=== PATIENT | female | born 2000 | race Caucasian/White ===

== ENCOUNTER 2023-05-22 09:06 | Emergency (ER) | payer BC, SELFPAY ==
[2023-05-22 09:50] VITALS: BP 121/83; PULSE 74; RESP 18; TEMP 36.9; O2SAT 100; BMI 21.7
--- NOTE | 2023-05-22 10:05 | EXP.UTC ---
Discharge Plan Disposition Patient Disposition: Home, Self-Care Condition: Good Referrals Follow up/Referrals: Doroteo Manjarrez DO [Staff Physician] - See instructions Provider,Referral, [Primary Care Provider] - See instructions Activity Restrictions/Add. Instructions Additional Instructions/Restrictions: Rest the extremity. Take tylenol for pain. Follow up with Dr. Manjarrez (orthopedics). I put in a referral but you need to call his office and schedule an appointment. Follow up with your regular doctor. GO TO THE ER FOR ANY WORSENING SYMPTOMS Clinical Impressions Clinical Impression: Left shoulder pain, Left shoulder strain, Tendinopathy of left shoulder Instructions Patient Instructions: Shoulder Tendinopathy, DI for Shoulder Pain Discharge ED Provider: [place] Caba [facility] General Stated complaint: left shoulder pain Mode of Arrival: Ambulatory Source of Information: Patient Limitations: No Limitations Time Seen by Provider: 05/22/23 09:40 Description of Symptoms (Recalled from Triage Doc. by RN): Pt had should surgery a year ago. She is having shoulder pain for about 2 weeks. She has 3 kids under three. HEENT Symptoms (Recalled from RN notes): No Resp Symptoms (Recalled from RN notes): No Skin Symptoms (Recalled from RN notes): No MS Symptoms (Recalled from RN notes): Yes Functional Status (Recalled from RN notes): n/a History of Present Illness Provider Complaint: She c/o chronic left shoulder pain that recently worsened after she pulled it lifting one of her children. Related Data Allergies Allergy/AdvReac Type Severity Reaction Status Date / Time No Known Allergies Allergy Verified 05/22/23 10:01 Worker's Comp Is this a Worker's Comp case?: No [facility] Disclaimer: The information contained in this section may have been updated after the patient was seen, as this information can be updated by other users. Social History Smoking Status: Never smoker alcohol intake: never current occupational status: employed Travel in the last 8 weeks: None ROS Obtained: Yes All systems reviewed & no additional complaints except as documented Constitutional Constitutional: Denies chills and Denies fever(s) Eyes Eyes: Denies eye discharge ENT Ears, Nose, Mouth, and Throat: Denies dizziness, Denies otalgia and Denies sore throat Cardiovascular Cardiovascular: Denies chest pain Respiratory Respiratory: Denies shortness of breath, Denies chest congestion, Denies cough, Denies stridor and Denies wheezing Gastrointestinal Gastrointestingal: Denies nausea or vomiting Musculoskeletal Musculoskeletal: Reports as per HPI Integumentary/Breasts Skin/Breast: Denies rash Neurologic Neurologic: Denies dizziness and Denies paresthesias Allergic/Immunologic Allergic/Immunologic: Denies wheezing Physical Exam General General appearance: alert and in no apparent distress Head Head exam: atraumatic, normocephalic and normal inspection Eye Eye exam: Present normal appearance, PERRL and EOMI ENT ENT exam: Present normal exam, normal oropharynx, mucous membranes moist, TM's normal bilaterally and normal external ear exam Neck Neck exam: Present normal inspection, full ROM and trachea midline; Absent meningismus or lymphadenopathy Chest Chest inspection: Present normal inspection and symmetric chest wall rise; Absent tenderness Respiratory Respiratory exam: Present normal lung sounds bilaterally; Absent respiratory distress Cardiovascular Cardiovascular exam: Present regular rate and normal rhythm; Absent JVD Abdominal Exam Abdominal exam: Present soft and normal bowel sounds; Absent distention, tenderness or guarding Extremities Exam Extremities exam: Present normal capillary refill; Absent calf tenderness Expanded Upper Extremity Exam Left: Shoulder exam: Present full ROM and tenderness; Absent swelling, abrasion, laceration, ecchymosis, deformity, crepitus, dislocation, erythema or tenderness over AC joint Back Exam Back exam: Present normal inspection; Absent tenderness Neurological Exam Neurological exam: Present alert and oriented X3 Psychiatric Psychiatric exam: Present normal affect and normal mood Skin Skin exam: Present warm, dry, intact and normal color Lymphatic Lymphatic Findings: no adenopathy Medical Decision Making Armen Inquiry Pt receiving controlled substance: No Vital Signs: 05/22/23 09:50 Temperature 98.4 F Temperature Source Oral Pulse Rate [Right Radial] 74 Respiratory Rate 18 Blood Pressure [Right Arm] 121/83 Blood Pressure Mean [Right Arm] 95 Blood Pressure Source [Right Arm] Automatic Cuff Blood Pressure Position [Right Arm] Sitting 02 Sat by Pulse Oximetry 100 Oxygen Delivery Method Room Air
--- NOTE | 2023-05-22 10:06 | XR_ITS ---
FINAL REPORT CLINICAL HISTORY: left sided shoulder pain FINDINGS: Left shoulder Three views were obtained. Sideplate and screws are seen securing healed fracture deformity of the distal clavicle. There are mild hypertrophic changes of the AC joint. The glenohumeral joint is intact. IMPRESSION: Degenerative and postsurgical changes. Reviewed, Interpreted and Dictated by Jagdeep Cheung MD Transcribed by Lisa Soriano Authenticated and [facility]
[2023-05-22 10:13] LABS: UTC Pregnancy Test, Urine Negative (Negative)
[2023-05-22 10:51] VITALS: BP 121/83; PULSE 74; RESP 18; TEMP 36.9; O2SAT 100
== END 2023-05-22 10:51 | disposition home or self-care (01) ==
PROVIDERS: Emergency Provider Nurse Practitioner Family
DX: S46.912A Strain of unspecified muscle, fascia and tendon at shoulder and upper arm level, left arm, initial encounter; M25.512 Pain in left shoulder; M67.912 Unspecified disorder of synovium and tendon, left shoulder; X50.0XXA Overexertion from strenuous movement or load, initial encounter
CPT/HCPCS: 73030; 81025; 99204; 99212; G0463

== ENCOUNTER 2023-09-30 08:42 | Emergency (ER) | payer BC, SELFPAY ==
[2023-09-30 09:00] VITALS: BP 115/63; PULSE 103; RESP 19; TEMP 36.8; O2SAT 98; BMI 21.4
--- NOTE | 2023-09-30 09:15 | EXP.UTC ---
Discharge Plan Disposition Patient Disposition: Home, Self-Care Condition: Good Prescriptions Prescriptions: New amoxicillin 500 mg tablet 500 mg PO TID 10 Days Qty: 30 0RF polymyxin B sulf-trimethoprim 10,000 unit- 1 mg/mL drops 1 drp Eye-Right Q3H 7 Days Qty: 10 0RF Rx Instructions: while awake; do not exceed 6 doses in 24 hours Referrals Follow up/Referrals: Provider,Referral, MD [Primary Care Provider] - See instructions Activity Restrictions/Add. Instructions Additional Instructions/Restrictions: Drink plenty of fluids. Take tylenol or ibuprofen for pain or fever. Take the medications as directed. Follow up with your regular doctor. GO TO THE ER FOR ANY WORSENING SYMPTOMS Clinical Impressions Clinical Impression: Pharyngitis, Acute conjunctivitis, right eye Instructions Patient Instructions: How to Instill Eye Drops Discharge ED Provider: Ky Caba [facility] HPI General Stated complaint: redness and swell to R eye, pain in L ear, S/T Time Seen by Provider: 09/30/23 09:15 History of Present Illness Provider Complaint: She state that for the past 5 days she has had redness of R eye, pain in L ear, and sore throat. Related Data Previous Rx's Medication Instructions Recorded amoxicillin 500 mg tablet 500 mg PO TID 10 days #30 tabs 09/30/23 polymyxin B sulfate 10,000 1 drp Eye-Right Q3H 7 days #10 mL 09/30/23 unit-trimethoprim 1 mg/mL eye drops Allergies Allergy/AdvReac Type Severity Reaction Status Date / Time No Known Allergies Allergy Verified 09/30/23 09:17 [facility] Disclaimer: The information contained in this section may have been updated after the patient was seen, as this information can be updated by other users. Social History Smoking Status: Never smoker alcohol intake: never current occupational status: employed Travel in the last 8 weeks: None ROS Obtained: Yes All systems reviewed & no additional complaints except as documented Constitutional Constitutional: Reports chills and Reports fever(s) Eyes Eyes: Denies eye discharge ENT Ears, Nose, Mouth, and Throat: Reports as per HPI Cardiovascular Cardiovascular: Denies chest pain Respiratory Respiratory: Denies chest congestion and Reports cough Gastrointestinal Gastrointestingal: Reports nausea; Denies abdominal pain, constipation, cramping, diarrhea or vomiting Musculoskeletal Musculoskeletal: Denies arthralgias Integumentary/Breasts Skin/Breast: Denies rash Neurologic Neurologic: Denies paresthesias Physical Exam General General appearance: alert and in no apparent distress Head Head exam: atraumatic, normocephalic and normal inspection Eye Eye exam: Present normal appearance, PERRL and EOMI ENT ENT exam: Present mucous membranes moist and normal external ear exam Expanded ENT Exam TM/Canal exam: Bilateral TM: erythema and bulging Nose exam: Absent sinus tenderness Mouth exam: Present normal external inspection; Absent drooling Teeth exam: Present normal inspection Throat exam: Present tonsillar erythema, tonsillomegaly and tonsillar exudate Neck Neck exam: Present normal inspection, full ROM and trachea midline; Absent tenderness, meningismus or lymphadenopathy Chest Chest inspection: Present normal inspection and symmetric chest wall rise; Absent tenderness Respiratory Respiratory exam: Present normal lung sounds bilaterally; Absent respiratory distress, wheezes, stridor or accessory muscle use Cardiovascular Cardiovascular exam: Present regular rate and normal rhythm; Absent systolic murmur or diastolic murmur Abdominal Exam Abdominal exam: Present soft and normal bowel sounds; Absent distention, tenderness, guarding, rebound or rigidity Extremities Exam Extremities exam: Present normal inspection and normal capillary refill; Absent calf tenderness Back Exam Back exam: Present normal inspection and full ROM; Absent tenderness, CVA tenderness (R) or CVA tenderness (L) Neurological Exam Neurological exam: Present alert, oriented X3 and CN II-XII intact Psychiatric Psychiatric exam: Present normal affect and normal mood Skin Skin exam: Present warm, dry, intact and normal color Medical Decision Making Medical Records Medical records reviewed: No I reviewed the patient's medical records. [place] Inquiry Pt receiving controlled substance: No Lab Data Lab results reviewed: Yes I reviewed the patient's lab results.
[2023-09-30 09:35] LABS: UTC Strep Screen (Rapid) Negative (Negative)
[2023-09-30 10:01] VITALS: BP 115/63; PULSE 103; RESP 19; TEMP 36.8; O2SAT 98
== END 2023-09-30 10:01 | disposition home or self-care (01) ==
PROVIDERS: Emergency Provider Nurse Practitioner Family
DX: J02.9 Acute pharyngitis, unspecified (principal); H10.31 Unspecified acute conjunctivitis, right eye; H92.02 Otalgia, left ear
CPT/HCPCS: 87880; 99212; 99214; G0463

== ENCOUNTER 2023-12-20 09:15 | Emergency (ER) | payer BC, SELFPAY ==
[2023-12-20 09:37] VITALS: BP 113/61; PULSE 98; RESP 20; TEMP 36.6; O2SAT 99; BMI 20.8
--- NOTE | 2023-12-20 09:45 | EXP.UTC ---
Discharge Plan Disposition Patient Disposition: Home, Self-Care Condition: Good Prescriptions Prescriptions: New metronidazole 500 mg tablet 500 mg PO BID 7 Days Qty: 14 0RF Referrals Follow up/Referrals: Provider,Referral, MD [Primary Care Provider] - See instructions Activity Restrictions/Add. Instructions Additional Instructions/Restrictions: *Monitor Temp, Over the counter Motrin or Tylenol as directed/as needed Tylenol every 4 hours and Motrin every 6 hours (as long as your family doctor has told you that you can take it) for fever or pain. and straight to ER if unable to lower temp less than 101.0 after medication given Make sure to drink plenty of fluids *Sleep elevated *Humidifier/Vaporizer Follow up IMMEDIATELY for new or worsening symptoms or no Noticeable improvement over the next 48-72 hours. 911 for difficulty breathing or swallowing You were tested for today for Upper Respiratory Panel with COVID19 your test result should be back in the next 24 hours, you may check your results on the [facility] Portal Clinical Impressions Clinical Impression: Bacterial vaginosis, Viral upper respiratory infection Instructions Patient Instructions: DI for Viral Syndrome, DI for Bacterial Vaginosis, Metronidazole Print Language Print Language: Occitan Discharge ED Provider: Sharon Chamberlain [facility] [place] General Stated complaint: headache, congestion, nauseous Mode of Arrival: Ambulatory Source of Information: Patient Time Seen by Provider: 12/20/23 09:45 Description of Symptoms (Recalled from Triage Doc. by RN): HEADACHE, CONGESTION HEENT Symptoms (Recalled from RN notes): Yes Resp Symptoms (Recalled from RN notes): Yes Skin Symptoms (Recalled from RN notes): No MS Symptoms (Recalled from RN notes): No Functional Status (Recalled from RN notes): WNL History of Present Illness Provider Complaint: Patient states that she is concerned she may have COVID states that she has been having headache, bodyaches and nausea States that she also has a hx of BV and she is having the fishy smelling discharge and itchiness so she wanted to get something for that also Related Data Previous Rx's ?Medication ?Instructions ?Recorded metronidazole 500 mg tablet 500 mg PO BID 7 days #14 tabs 12/20/23 Allergies Allergy/AdvReac Type Severity Reaction Status Date / Time No Known Allergies Allergy Verified 09/30/23 09:17 Worker's Comp Is this a Worker's Comp case?: No PFSH [facility] Disclaimer: The information contained in this section may have been updated after the patient was seen, as this information can be updated by other users. Social History Smoking Status: Never smoker alcohol intake: never current occupational status: employed Travel in the last 8 weeks: None ROS Obtained: Yes All systems reviewed & no additional complaints except as documented and Yes Systems reviewed as appropriate & no additional complaints except as documented Constitutional Constitutional: Reports system reviewed and no additional complaints, except as documented, Reports as per HPI, Reports body ache and Reports headache(s) ENT Ears, Nose, Mouth, and Throat: Reports system reviewed and no additional complaints, except as documented, Reports as per HPI, Reports headache(s) and Reports nasal congestion Cardiovascular Cardiovascular: Reports system reviewed and no additional complaints, except as documented and Reports as per HPI Respiratory Respiratory: Reports system reviewed and no additional complaints, except as documented and Reports as per HPI Gastrointestinal Gastrointestingal: Reports system reviewed and no additional complaints, except as documented and as per HPI Genitourinary Female Genitourinary: Reports system reviewed and no additional complaints, except as documented, Reports as per HPI, Reports vaginal odor and Reports vaginal pruritus Neurologic Neurologic: Reports headache(s) Physical Exam General General appearance: alert and in no apparent distress ENT ENT exam: Present mucous membranes moist Expanded ENT Exam Nose exam: Absent sinus tenderness Throat exam: Present normal inspection Respiratory Respiratory exam: Present normal lung sounds bilaterally; Absent respiratory distress or wheezes Cardiovascular Cardiovascular exam: Present regular rate, normal rhythm and normal heart sounds External exam: Present other (deferred reports fishy smelling discharge and itching like she has when she has BV) Neurological Exam Neurological exam: Present alert, oriented X3 and normal gait Medical Decision Making Medical Records Screening: Per USPSTF and CDC recommendations, given the prevalence of disease in our region, it is our hospital?s policy to screen for HIV and viral Hepatitis for all patients aged 18 and over and those with ongoing risk factors. Armen Inquiry Pt receiving controlled substance: No Armen was queried for this patient: No Vital Signs: 12/20/23 09:37 Temperature 97.9 F Temperature Source Oral Pulse Rate [Left Brachial] 98 H Respiratory Rate 20 Blood Pressure [Right Arm] 113/61 Blood Pressure Mean [Right Arm] 78 02 Sat by Pulse Oximetry 99
[2023-12-20 09:57] VITALS: BP 113/61; PULSE 98; RESP 20; TEMP 36.6; O2SAT 99
== END 2023-12-20 10:04 | disposition home or self-care (01) ==
PROVIDERS: Emergency Provider Nurse Practitioner
DX: N76.0 Acute vaginitis (principal); R51.9 Headache, unspecified; R11.0 Nausea; J06.9 Acute upper respiratory infection, unspecified; B34.9 Viral infection, unspecified
CPT/HCPCS: 87635; 99212; 99214; G0463

== ENCOUNTER 2024-01-22 09:11 | Emergency (ER) | payer BC, SELFPAY ==
[2024-01-22 09:30] VITALS: BP 134/62; PULSE 78; RESP 20; TEMP 36.4; O2SAT 98; BMI 21.0
--- NOTE | 2024-01-22 10:20 | EXP.UTC ---
Discharge Plan Disposition Patient Disposition: Home, Self-Care Condition: Good Prescriptions Prescriptions: New metronidazole 500 mg tablet 500 mg PO BID 7 Days Qty: 14 0RF Referrals Follow up/Referrals: Provider,Referral, [Primary Care Provider] - See instructions Activity Restrictions/Add. Instructions Additional Instructions/Restrictions: Take medication as prescribed Follow up with OBGYN as discussed Make sure to eat with this medication Clinical Impressions Clinical Impression: Bacterial vaginosis Instructions Patient Instructions: Metronidazole, DI for Bacterial Vaginosis Print Language Print Language: Cymraes Discharge ED Provider: Sharon Chamberlain [facility] [place] HPI General Stated complaint: uti Mode of Arrival: Ambulatory Source of Information: Patient Limitations: No Limitations Time Seen by Provider: 01/22/24 10:20 Description of Symptoms (Recalled from Triage Doc. by RN): PATIENT C/O ITCHING AND SMELLY DISCHARGE TO VAGINAL AREA THAT STARTED THIS PAST WEEK HEENT Symptoms (Recalled from RN notes): No Resp Symptoms (Recalled from RN notes): No Skin Symptoms (Recalled from RN notes): No MS Symptoms (Recalled from RN notes): No Functional Status (Recalled from RN notes): WNL History of Present Illness Provider Complaint: Patient states that she has a hx of BV and get it when she changes soaps or wears thongs and she has done both recently and noticed she was having some itching and fishy smelling discharge so she came in to get something to help like she has before Related Data Previous Rx's ?Medication ?Instructions ?Recorded metronidazole 500 mg tablet 500 mg PO BID 7 days #14 tabs 01/22/24 Allergies Allergy/AdvReac Type Severity Reaction Status Date / Time No Known Allergies Allergy Verified 09/30/23 09:17 Worker's Comp Is this a Worker's Comp case?: No [facility] Disclaimer: The information contained in this section may have been updated after the patient was seen, as this information can be updated by other users. Medical History (Updated 01/22/24 @ 10:24 by Sharon Chamberlain APRN) No significant past medical history Social History Smoking Status: Never smoker alcohol intake: never current occupational status: employed Travel in the last 8 weeks: None ROS Obtained: Yes All systems reviewed & no additional complaints except as documented and Yes Systems reviewed as appropriate & no additional complaints except as documented Constitutional Constitutional: Reports system reviewed and no additional complaints, except as documented and Reports as per HPI ENT Ears, Nose, Mouth, and Throat: Reports system reviewed and no additional complaints, except as documented and Reports as per HPI Cardiovascular Cardiovascular: Reports system reviewed and no additional complaints, except as documented and Reports as per HPI Respiratory Respiratory: Reports system reviewed and no additional complaints, except as documented and Reports as per HPI Gastrointestinal Gastrointestingal: Reports system reviewed and no additional complaints, except as documented and as per HPI Genitourinary Female Genitourinary: Reports system reviewed and no additional complaints, except as documented, Reports as per HPI, Reports vaginal discharge (fishy smelling discharge) and Reports vaginal pruritus Physical Exam General General appearance: alert and in no apparent distress ENT ENT exam: Present mucous membranes moist Respiratory Respiratory exam: Present normal lung sounds bilaterally; Absent respiratory distress or wheezes Cardiovascular Cardiovascular exam: Present regular rate, normal rhythm and normal heart sounds External exam: Present other (deferred) Neurological Exam Neurological exam: Present alert, oriented X3 and normal gait Medical Decision Making Medical Records Screening: Per USPSTF and CDC recommendations, given the prevalence of disease in our region, it is our hospital?s policy to screen for HIV and viral Hepatitis for all patients aged 18 and over and those with ongoing risk factors. Armen Inquiry Pt receiving controlled substance: No Armen was queried for this patient: No Vital Signs: 01/22/24 09:30 Temperature 97.6 F Temperature Source Oral Pulse Rate [Left Brachial] 78 Respiratory Rate 20 Blood Pressure [Left Arm] 134/62 Blood Pressure Mean [Left Arm] 86 Blood Pressure Source [Left Arm] Automatic Cuff Blood Pressure Position [Left Arm] Sitting 02 Sat by Pulse Oximetry 98 Oxygen Delivery Method Room Air
[2024-01-22 10:25] VITALS: BP 134/62; PULSE 78; RESP 20; TEMP 36.4; O2SAT 98
== END 2024-01-22 10:28 | disposition home or self-care (01) ==
PROVIDERS: Emergency Provider Nurse Practitioner
DX: N76.0 Acute vaginitis (principal)
CPT/HCPCS: 99213; G0381

== ENCOUNTER 2024-02-27 11:00 | Emergency (ER) | payer BC, SELFPAY ==
[2024-02-27 11:01] VITALS: BP 92/71; PULSE 82; RESP 16; TEMP 36.5; O2SAT 100; BMI 21.0
--- NOTE | 2024-02-27 11:35 | ED_ITS ---
Discharge Plan Disposition Patient Disposition: Home, Self-Care Prescriptions Prescriptions: New amoxicillin 875 mg tablet 875 mg PO BID Qty: 10 0RF prednisone 20 mg tablet 40 mg PO DAILY 5 Days Qty: 10 0RF methocarbamol 750 mg tablet 1,500 mg PO TID 5 Days Qty: 30 0RF No Action metronidazole 500 mg tablet 500 mg PO BID 7 Days Qty: 14 0RF Referrals Follow up/Referrals: Provider,Referral, MD [Primary Care Provider] - See instructions Activity Restrictions/Add. Instructions Additional Instructions/Restrictions: Call your family doctor to establish care for this visit to the emergency department and schedule follow-up within 48 hours to ensure improvement. If you have any worsening of your condition or any other concerning signs or symptoms, return to the emergency department or your primary care doctor for further evaluation. Prednisone 40 mg each morning with plenty of food and water to prevent GI upset. Robaxin up to 3 times daily to help with muscle spasms in your neck. If you begin having fevers, dark green or yellow nasal discharge, or any other concerns, burr picker amoxicillin and take twice daily for 5 days. Clinical Impressions Clinical Impression: Spasm of left trapezius muscle, Sinusitis Print Language Print Language: Panamanian Discharge ED Provider: Antony Spence General Adult HPI General Chief complaint: Upper Respiratory Infection Stated complaint: headache, sinus pressure Time Seen by Provider: 02/27/24 11:21 Mode of Arrival: Ambulatory Source of Information: Patient Limitations: No Limitations Description of Symptoms (Recalled from ER Triage Doc. by RN): Patient reports sinus and ear pressure since last night. States that she has body aches and a headache as well. History of Present Illness HPI narrative: Please note that above description of symptoms, in this electronic medical record under categorization of recalled from ER triage doctor by RN are reflective of an initial nursing assessment, however, is not reflective of my full history and physical exam that was personally taken and clarified. Consequentially, this preceding description of symptoms, which may include the p atient's categorized chief complaint in the EMR, do not reflect my personal clinical impression, and the ultimate description of history of present illness and patient stated complaints should be deferred to this section of the note. Unless stated otherwise or congruent with this section of the note, additional signs, symptoms, or incongruence should be interpreted as inaccurate with my clinical impression. Related Data Previous Rx's ?Medication ?Instructions ?Recorded metronidazole 500 mg tablet 500 mg PO BID 7 days #14 tabs 01/22/24 amoxicillin 875 mg tablet 875 mg PO BID #10 tabs 02/27/24 methocarbamol 750 mg tablet 1,500 mg (2 x 750 mg) PO TID 5 02/27/24 days #30 tabs prednisone 20 mg tablet 40 mg (2 x 20 mg) PO DAILY 5 days 02/27/24 #10 tabs Allergies Allergy/AdvReac Type Severity Reaction Status Date / Time No Known Allergies Allergy Verified 09/30/23 09:17 [facility] Disclaimer: The information contained in this section may have been updated after the patient was seen, as this information can be updated by other users. Medical History (Updated 02/27/24 @ 12:46 by Antony Spence MD) No significant past medical history Social History Smoking Status: Current every day smoker alcohol intake: never current occupational status: employed ROS Obtained: Yes All systems reviewed & no additional complaints except as documented Physical Exam General General appearance: alert Head Head exam: atraumatic and normocephalic Eye Eye exam: Present normal appearance, PERRL and EOMI Neck Neck exam: Present normal inspection, full ROM, trachea midline and tenderness (Paraspinal left-sided trapezius muscle tenderness); Absent meningismus or lymphadenopathy Respiratory Respiratory exam: Absent respiratory distress, wheezes, stridor, accessory muscle use or prolonged expiratory phase Cardiovascular Cardiovascular exam: Present other (Pulses equal symmetric in upper and lower extremities) Abdominal Exam Abdominal exam: Present soft; Absent distention, tenderness or pulsatile mass Extremities Exam Extremities exam: Absent edema Neurological Exam Neurological exam: Present alert, oriented X3 and CN II-XII intact; Absent motor sensory deficit Skin Skin exam: Present warm and dry; Absent diaphoresis or erythema Medical Decision Making Medical Records Medical records reviewed: Yes I reviewed the patient's medical records. Screening: Per USPSTF and CDC recommendations, given the prevalence of disease in our region, it is our hospital?s policy to screen for HIV and viral Hepatitis for all patients aged 18 and over and those with ongoing risk factors. Armen Inquiry Pt receiving controlled substance: No Armen was queried for this patient: No Vital Signs: 02/27/24 11:01 02/27/24 12:14 Temperature 97.7 F 98.0 F Temperature Source Oral Oral Pulse Rate 102 H Pulse Rate [Radial] 82 Respiratory Rate 16 20 Blood Pressure 135/95 H Blood Pressure [Right Arm] 92/71 L Blood Pressure Mean [Right Arm] 78 Blood Pressure Source Automatic Cuff Blood Pressure Source [Right Arm] Automatic Cuff Blood Pressure Position Sitting Blood Pressure Position [Right Arm] Sitting 02 Sat by Pulse Oximetry 100 Oxygen Delivery Method Room Air Room Air Orders (Tests/Meds): ED MEDICATIONS Discontinued Medications Generic Name Dose Route Start Last Admin Trade Name Pura PRN Reason Stop Dose Admin Ketorolac Tromethamine 15 mg 02/27/24 12:42 Ketorolac 30mg/Ml Vial IM 02/27/24 12:43 ONCE ONE Methocarbamol 1,500 mg 02/27/24 12:16 02/27/24 12:29 Methocarbamol 500mg Tablet PO 02/27/24 12:17 1,500 mg ONCE ONE Administration Prednisone 40 mg 02/27/24 11:30 02/27/24 11:48 Prednisone 20mg Tab PO 02/27/24 11:31 40 mg ONCE ONE Administration ORDERS Category Date Time Status HIV (1&2) Antibody Rapid Stat Lab 02/27/24 11:07 Ordered Hep C Ab with Reflex to RNA Stat Lab 02/27/24 11:07 Ordered Medical Decision Narrative: 24-year-old female presenting with sinus pressure as well as left-sided neck tenderness. States this has been going on in terms of the URI symptoms for about a week. Drainage is clear, no fevers or chills, no vision changes, no vomiting. She has had muscle tenderness going up the left side of her shoulder/neck and back into the posterior aspect of her head that she is taking Tylenol for as well as Excedrin Migraine. Associated with headache. History obtained with patient. On arrival, well-appearing. Mentating appropriately, no signs of meningismus, lymphadenopathy, neck stiffness, range of motion difficulties. She has tenderness along trapezius muscle with significant muscle tension. Neurologically intact. Differential includes viral syndrome, muscle spasm, among others.Patient given 40 mg prednisone p.o. still having pain on reevaluation, states that the pain in her neck is radiating up into her head and causing her to have a headache. She is also simultaneously having pain in her teeth and her face on the left side. I feel that these are distinct entities and she is probably likely having the maxillofacial pain from sinus pressure, but left-sided headache from muscle tension and muscle spasm in her left trapezius muscle extending down to her mid back and out to her posterior left shoulder. Patient given Toradol shot, Robaxin orally for these. Bilateral TMs normal, external auditory canals normal. No evidence of mastoiditis. Conversation had with patient regarding likelihood of viral sinusitis, she voiced her understanding. Agreeable to outpatient prednisone and wait and watch prescription for amoxicillin. Because patient at baseline without signs or symptoms of clinical decompensation, deemed appropriate for discharge. Results were relayed to patient who voiced understanding and were agreeable to outp atient management and follow up. I discussed my clinical impression with patient and answered all questions. At this time, the evidence for any other entities in the differential is insufficient to warrant any further testing or ED observation. This was explained as well. Advisory was given that persistent or worsening symptoms require further evaluation. I confirmed the understanding of this discussion. Buyer Broker disclaimer Much of this encounter note is an electronic christian science practitioner spoken language to printed text. Electronic christian science practitioner of the spoken language may permit errors. Although I have reviewed the note, some errors may still exist. Critical Care Critical Care Time Critical Care Time: No
[2024-02-27] MEDS: predniSONE 20MG TAB 40 MG PO (11:48)
[2024-02-27 12:14] VITALS: BP 135/95; PULSE 102; RESP 20; TEMP 36.7; O2SAT 99
[2024-02-27] MEDS: METHOCARBAMOL 500MG TABLET 1500 MG PO (12:29)
[2024-02-27] MEDS: KETOROLAC 30MG/ML VIAL 15 MG IM (12:51)
== END 2024-02-27 13:04 | disposition home or self-care (01) ==
PROVIDERS: Emergency Provider Emergency Medicine
DX: J32.9 Chronic sinusitis, unspecified (principal); M62.830 Muscle spasm of back; J34.89 Other specified disorders of nose and nasal sinuses; H93.8X9 Other specified disorders of ear, unspecified ear; R51.9 Headache, unspecified; M54.2 Cervicalgia
CPT/HCPCS: 96372; 99284; J1885

== ENCOUNTER 2024-05-07 08:19 | Emergency (ER) | payer OTHER, SELFPAY ==
[2024-05-07 09:00] VITALS: BP 110/87; PULSE 87; RESP 18; TEMP 36.8; O2SAT 99; BMI 20.9
[2024-05-07 09:04] LABS: Coronavirus 19, PCR Not Detected (NotDetected); Human Rhinovirus Not Detected (NotDetected); Influenza A, PCR Not Detected (NotDetected); Influenza B, PCR Not Detected (NotDetected); Respiratory Syncytial Virus Not Detected (NotDetected)
--- NOTE | 2024-05-07 09:10 | EXP.UTC ---
Discharge Plan Disposition Patient Disposition: Home, Self-Care Condition: Good Prescriptions Prescriptions: New amoxicillin 500 mg capsule 500 mg PO TID 7 Days Qty: 21 0RF fluticasone propionate [Flonase Allergy Relief] 50 mcg/actuation spray,suspension 2 spray intranasal DAILY Qty: 16 0RF Rx Instructions: administer into each nostril daily Referrals Follow up/Referrals: Provider,Referral, MD [Primary Care Provider] - See instructions Activity Restrictions/Add. Instructions Additional Instructions/Restrictions: *Monitor Temp, Over the counter Motrin or Tylenol as directed/as needed Tylenol every 4 hours and Motrin every 6 hours (as long as your family doctor has told you that you can take it) for fever or pain. and straight to ER if unable to lower temp less than 101.0 after medication given *Warm salt water gargles may help to soothe the throat *Throat Lozenges? *Warm fluids like tea with honey may help to soothe the throat? *Sleep elevated *Humidifier/Vaporizer *Flonase 2 sprays in each nostril daily but be aware that it may take 2-3 days before you notice improvement Follow up IMMEDIATELY for new or worsening symptoms or no Noticeable improvement over the next 48-72 hours. 911 for difficulty breathing or swallowing Clinical Impressions Clinical Impression: Otitis media Instructions Patient Instructions: Middle Ear Infection, DI for Nasal Congestion Print Language Print Language: Swedish Discharge ED Provider: Sharon Chamberlain [facility] [place] HPI General Stated complaint: left ear pain congestion Mode of Arrival: Ambulatory Source of Information: Patient Limitations: No Limitations Time Seen by Provider: 05/07/24 09:10 Description of Symptoms (Recalled from Triage Doc. by RN): PATIENT C/O LEFT EAR PAIN, HEADACHE, AND SINUS PRESSURE X 2 DAYS HEENT Symptoms (Recalled from RN notes): Yes Resp Symptoms (Recalled from RN notes): No Skin Symptoms (Recalled from RN notes): No MS Symptoms (Recalled from RN notes): No Functional Status (Recalled from RN notes): WNL History of Present Illness Provider Complaint: Patient states that she has been having pain in her left ear that has continued to get worse over the last couple of days and sinus congestion and drainage in the back of her throat States today she wasnt feeling any better so she came in to get checked Related Data Previous Rx's ?Medication ?Instructions ?Recorded amoxicillin 500 mg capsule 500 mg PO TID 7 days #21 caps 05/07/24 fluticasone propionate 50 2 spray intranasal DAILY #16 grams 05/07/24 mcg/actuation nasal spray,suspension (Flonase Allergy Relief) Allergies Allergy/AdvReac Type Severity Reaction Status Date / Time No Known Allergies Allergy Verified 09/30/23 09:17 Worker's Comp Is this a Worker's Comp case?: [facility] Disclaimer: The information contained in this section may have been updated after the patient was seen, as this information can be updated by other users. Medical History (Updated 05/07/24 @ 09:17 by Sharon Chamberlain APRN) No significant past medical history Social History Smoking Status: Current every day smoker alcohol intake: never current occupational status: employed Travel in the last 8 weeks: None Have you lived/traveled outside US in past 30 days?: No Contact w/someone who lives/traveled outside US past 30 days?: No Exposure to someone with infectious disease in past 14 days?: No Do you have a fever (greater than 100.4 F or 38 C)?: No Have you tested positive for COVID-19: No Exposed to someone with COVID-19 in past 14 days?: No Do you have a sore throat?: No Do you have a cough?: No Do you have any weakness?: No Do you have any diarrhea?: No Are you experiencing any unusual bleeding?: No Do you have any muscle aches/pain?: No Do you have any abdominal pain?: No Are you experiencing loss of taste or smell?: No ROS Obtained: Yes All systems reviewed & no additional complaints except as documented and Yes Systems reviewed as appropriate & no additional complaints except as documented Constitutional Constitutional: Reports system reviewed and no additional complaints, except as documented and Reports as per HPI ENT Ears, Nose, Mouth, and Throat: Reports system reviewed and no additional complaints, except as documented, Reports as per HPI, Reports otalgia, Reports nasal congestion and Reports nasal discharge Cardiovascular Cardiovascular: Reports system reviewed and no additional complaints, except as documented and Reports as per HPI Respiratory Respiratory: Reports system reviewed and no additional complaints, except as documented and Reports as per HPI Gastrointestinal Gastrointestingal: Reports system reviewed and no additional complaints, except as documented and as per HPI Genitourinary Female Genitourinary: Reports system reviewed and no additional complaints, except as documented and Reports as per HPI Physical Exam General General appearance: alert and in no apparent distress Expanded ENT Exam TM/Canal exam: Left TM: erythema and bulging Throat exam: Present other (PND noted) Respiratory Respiratory exam: Present normal lung sounds bilaterally; Absent respiratory distress or wheezes Cardiovascular Cardiovascular exam: Present regular rate, normal rhythm and normal heart sounds Abdominal Exam Abdominal exam: Present soft and normal bowel sounds; Absent distention or tenderness Neurological Exam Neurological exam: Present alert, oriented X3 and normal gait Medical Decision Making Medical Records Screening: Per USPSTF and CDC recommendations, given the prevalence of disease in our region, it is our hospital?s policy to screen for HIV and viral Hepatitis for all patients aged 18 and over and those with ongoing risk factors. Armen Inquiry Pt receiving controlled substance: No Armen was queried for this patient: No Vital Signs: 05/07/24 09:00 Temperature 98.3 F Temperature Source Oral Pulse Rate [Left Brachial] 87 Respiratory Rate 18 Blood Pressure [Left Arm] 110/87 Blood Pressure Mean [Left Arm] 94 Blood Pressure Source [Left Arm] Automatic Cuff Blood Pressure Position [Left Arm] Sitting 02 Sat by Pulse Oximetry 99 Oxygen Delivery Method Room Air Orders (Tests/Meds): ORDERS Category Date Time Status Mini Respiratory Panel Stat Lab 05/07/24 09:00 Received
[2024-05-07 09:27] VITALS: BP 110/87; PULSE 87; RESP 18; TEMP 36.8; O2SAT 99
== END 2024-05-07 09:32 | disposition home or self-care (01) ==
PROVIDERS: Emergency Provider Nurse Practitioner
DX: H66.92 Otitis media, unspecified, left ear (principal)
CPT/HCPCS: 87631; 99213; G0381

== ENCOUNTER 2024-08-28 14:52 | Emergency (ER) | payer OTHER, SELFPAY ==
[2024-08-28 15:15] VITALS: BP 117/73; PULSE 77; RESP 18; TEMP 36.6; O2SAT 100; BMI 21.9
--- NOTE | 2024-08-28 15:24 | HMH.EDGENADL ---
Discharge Plan Disposition Patient Disposition: Home, Self-Care Condition: Good Prescriptions Prescriptions: No Action clotrimazole [Antifungal (clotrimazole)] 1 % cream 1 applic topical BID 14 Days Qty: 30 0RF Referrals Follow up/Referrals: Christopher Sadler DO [Staff Physician, Family Practice] - See instructions Provider,Referral, [Primary Care Provider, Medical] - See instructions Activity Restrictions/Add. Instructions Additional Instructions/Restrictions: Call Dr. Sadler's office to schedule an appointment. Please return to the ER with any new, concerning, worsening symptoms Clinical Impressions Clinical Impression: Anxiety, Palpitations Print Language Print Language: Portuguese Discharge ED Provider: Tay Juarez General Adult HPI General Chief complaint: Recheck/Abnormal Lab/Rx Stated complaint: nausea, light headed, lethargic Time Seen by Provider: 08/28/24 15:20 Mode of Arrival: Ambulatory Source of Information: Patient Limitations: No Limitations History of Present Illness HPI narrative: This is an otherwise healthy 24-year-old female who presents with concern for episodes of palpitations, lightheadedness, and nervousness. No limitations. States that these episodes are situational. States that she has 3 young kids at home and just darted a new job. States that yesterday she had an episode that was so bad that she could not put her child on the car. Believes that it may be anxiety related however has not followed up with her primary care doctor in a long time and would like to have her blood work checked. Denies any other symptoms. Related Data Previous Rx's ?Medication ?Instructions ?Recorded clotrimazole 1 % topical cream 1 applic topical BID 2 weeks #30 05/16/24 (Antifungal (clotrimazole)) grams Allergies Allergy/AdvReac Type Severity Reaction Status Date / Time No Known Allergies Allergy Verified 05/16/24 14:36 [facility] Disclaimer: The information contained in this section may have been updated after the patient was seen, as this information can be updated by other users. Medical History No significant past medical history Social History Smoking Status: Never smoker alcohol intake: never current occupational status: employed Travel in the last 8 weeks?: None Have you lived/traveled outside US in past 30 days?: No Contact w/someone who lives/traveled outside US past 30 days?: No Exposure to someone with infectious disease in past 14 days?: No Do you have a fever (greater than 100.4 F or 38 C)?: No Have you tested positive for COVID-19?: No Exposed to someone with COVID-19 in past 14 days?: No Do you have a sore throat?: No Do you have a cough?: No Do you have any weakness?: Yes Do you have any diarrhea?: No Are you experiencing any unusual bleeding?: No Do you have any muscle aches/pain?: No Do you have any abdominal pain?: No Are you experiencing loss of taste or smell?: No ROS Obtained: Yes All systems reviewed & no additional complaints except as documented Physical Exam General General appearance: alert and in no apparent distress Head Head exam: atraumatic Eye Eye exam: Present normal appearance, PERRL and EOMI Neck Neck exam: Present normal inspection and full ROM Chest Chest inspection: Present symmetric chest wall rise Respiratory Respiratory exam: Present normal lung sounds bilaterally; Absent respiratory distress Cardiovascular Cardiovascular exam: Present regular rate and normal rhythm Abdominal Exam Abdominal exam: Present soft; Absent distention Extremities Exam Extremities exam: Present normal inspection Neurological Exam Neurological exam: Present alert and oriented X3 Psychiatric Psychiatric exam: Present normal affect and normal mood Skin Skin exam: Present warm and dry Medical Decision Making Medical Records Medical records reviewed: Yes I reviewed the patient's medical records. Screening: Per USPSTF and CDC recommendations, given the prevalence of disease in our region, it is our hospital?s policy to screen for HIV and viral Hepatitis for all patients aged 18 and over and those with ongoing risk factors. Armen Inquiry Pt receiving controlled substance: No Vital Signs: 08/28/24 15:15 08/28/24 16:33 Temperature 97.9 F 97.8 F Temperature Source Oral Oral Pulse Rate 66 Pulse Rate [Left] 77 Respiratory Rate 18 15 Blood Pressure 110/77 Blood Pressure [Right Arm] 117/73 Blood Pressure Mean [Right Arm] 87 Blood Pressure Source Automatic Cuff Blood Pressure Source [Right Arm] Automatic Cuff Blood Pressure Position Sitting Blood Pressure Position [Right Arm] Sitting 02 Sat by Pulse Oximetry 100 Oxygen Delivery Method Room Air Room Air Lab Data Lab Results 08/28/24 16:03: WBC 8.1, RBC 4.15 L, Hgb 11.7 L, Hct 37.1, MCV 89.4, MCH 28.2, MCHC 31.5 L, RDW 12.9, Plt Count 273, MPV 10.5 H, Neut % (Auto) 57.0, Lymph % (Auto) 35.4, Hall % (Auto) 5.6, Eos % (Auto) 1.4, Baso % (Auto) 0.4, Neut # (Auto) 4.6, Lymph # (Auto) 2.9, Hall # (Auto) 0.5, Eos # (Auto) 0.1, Baso # (Auto) 0.0, Sodium 138, Potassium 4.1, Chloride 105, Carbon Dioxide 28, Anion Gap 9.1, BUN 19 H, Creatinine 0.60, Estimated Creat Clear 122, Estimated GFR 121, Est GFR ( Amer) 146, Glucose 88, Calcium 9.1, Total Bilirubin 0.5, AST 30, ALT 18, Alkaline Phosphatase 60, Total Protein 7.5, Albumin 4.9, Globulin 2.6, Albumin/Globulin Ratio 1.9 H, TSH 0.82, Serum HCG, Qual Negative, HCV Ab VADIM w/Rflx PCR Qn Negative, HIV Ag/Ab Combo Qual Negative 08/28/24 16:03 08/28/24 16:03 Orders (Tests/Meds): ORDERS Category Date Time Status CBC w/Auto Diff [Complete Blood Count Auto Diff] Stat Lab 08/28/24 16:03 Completed CMP [Comprehensive Metabolic Panel] Stat Lab 08/28/24 16:03 Completed HCG Qualitative, Serum Stat Lab 08/28/24 16:03 Completed HIV Combo Stat Lab 08/28/24 16:03 Completed Hepatitis C Ab Qual. W/ RFX Stat Lab 08/28/24 16:03 Completed TSH [Thyroid Stimulating Hormone] Stat Lab 08/28/24 16:03 Completed ECG Data Tracing #1: I reviewed this ECG and interpreted as documented below: Sinus rhythm with sinus arrhythmia at a rate of 75, QTc 371, normal axis, no STEMI. Medical Decision Narrative: This is an otherwise healthy 24-year-old female who presents with episodes of lightheadedness, nervousness, palpitations and generalized weakness. On arrival, patient was afebrile, hemodynamically stable, very well-appearing. No acute distress. Differential diagnose includes but is not limited to anemia, hypothyroidism, anxiety, panic attacks. I believe that patient's symptoms are more psychological given the recent addition of a new stressor and the fact that they are situational, however will obtain CBC, CMP, thyroid studies, and EKG to rule out organic causes. EKG independently interpreted by me as noted above. Prior to results of patient CBC, CMP, and thyroid studies she expressed a desire to be discharged to go moss picker her children. Patient was ultimately discharged in stable condition. Laboratory workup revealed mild anemia with a hemoglobin of 11.7, unremarkable CMP, normal TSH, and negative test Critical Care Critical Care Time Critical Care Time: No
--- NOTE | 2024-08-28 15:29 | ECG_ITS ---
APPROVED REPORT Exam: Resting ECG HR:75 bpm ECG Measurements Heart Rate 75 AXES FL 165 P 84 QRSd 87 QRS 81 QT 343 T 75 QTc 371 Conclusion SINUS RHYTHM WITH SINUS ARRHYTHMIA NORMAL ECG Electronically signed by : ASHLIE GAMBINO, 08/30/2024 12:41:34
[2024-08-28 16:27] LABS: Basophils % 0.4 % (0.1-2.0); Eosinophils # 0.1 Kmm3 (0.0-0.4); Eosinophils % 1.4 % (0.1-12.0); Hematocrit 37.1 % (37.0-47.0); Hemoglobin 11.7 g/dL (12.2-16.2); Immature Granulocytes # 0.02 10^3uL; Immature Granulocytes % 0.2 %; Lymphocytes # 2.9 K/mm3 (0.7-4.5); Lymphocytes % 35.4 % (10-50); Mean Corpuscular HGB Conc 31.5 g/dL (31.8-35.4); Mean Corpuscular Hemoglobin 28.2 pg (27.0-31.2); Mean Corpuscular Volume 89.4 fl (81-99); Mean Platelet Volume 10.5 fl (7.4-10.4); Monocytes # 0.5 K/mm3 (0.1-1.0); Monocytes % 5.6 % (1.7-9.3); Neutrophils # 4.6 K/mm3 (1.8-7.8); Nucleated Red Blood Cells # 0 10^3/uL; Nucleated Red Blood Cells % 0 %; Platelet Count 273 K/mm3 (142-424); Red Blood Count 4.15 M/mm3 (4.20-5.40); Red Cell Distribution Width 12.9 % (11.5-17.5); Red Cell Distribution Width-SD 42.6 fL; White Blood Count 8.1 K/mm3 (4.8-10.8)
[2024-08-28 16:33] VITALS: BP 110/77; PULSE 66; RESP 15; TEMP 36.6; O2SAT 99
[2024-08-28 16:33] LABS: Albumin Level 4.9 g/dl (3.5-5.0); Chloride 105 mmol/L (98-107); Potassium 4.1 mmoL/L (3.5-5.1); Sodium 138 mmol/L (136-145)
[2024-08-28 16:36] LABS: Alanine Aminotransferase 18 U/L (12-78); Albumin/Globulin Ratio 1.9 (1.1-1.8); Alkaline Phosphatase 60 U/L (38-126); Anion Gap 9.1 mEq/L (5-15); Aspartate Amino Transferase 30 U/L (14-36); Bilirubin,Total 0.5 mg/dl (0.2-1.3); Blood Urea Nitrogen 19 mg/dl (7-17); Calcium 9.1 mg/dl (8.4-10.2); Carbon Dioxide 28 mmol/L (22.0-30.0); Creatinine Clearance Estimated 122 mL/min (50-200); Estimated Glomerular Filt Rate 121 ml/min (>60); GFR (African American) 146 ML/MIN (>60); Globulin 2.6 g/dL (1.3-3.2); Glucose 88 mg/dl (74-100); Total Protein,Serum 7.5 g/dl (6.3-8.2)
[2024-08-28 17:07] LABS: Thyroid Stimulating Hormone 0.82 uIU/mL (0.465-4.68)
[2024-08-28 17:45] LABS: HCG Qualitative, Serum Negative (Negative)
[2024-08-28 18:29] LABS: HIV Combo NEGATIVE (Negative)
[2024-08-28 18:36] LABS: Hepatitis C Ab Qual. W/ RFX NEGATIVE (Negative)
== END 2024-08-28 16:32 | disposition home or self-care (01) ==
LOC: ER 15:33
PROVIDERS: Emergency Provider Student in an Organized Health Care Education/Training Program
DX: F41.1 Generalized anxiety disorder (principal); R00.2 Palpitations
CPT/HCPCS: 80053; 84443; 84703; 85025; 86803; 87389; 93005; 99283

== ENCOUNTER 2024-12-23 13:45 | Outpatient (CLI) | payer SELFPAY ==
--- OUTSIDE RECORDS SUMMARY | 2020-11-09 08:30 | XMS_ITS | Encounter Summary ---
Author Organization [facility] Address [address] [place] [address] Care Team Providers Care Chief Projectionist Name Role Phone Provider, No Known Primary Care Provider Unavail able Reason for Referral * Diagnostic Imaging (Routine) - Closed Specialty Diagnoses / Procedures Referred By Contac t Referred To Contact Radiology Diagnoses Date of last menstrual period (LMP) unknown Procedures US Ob Transvaginal Elmira Hull MD [address] [place] [address] Phone: tel: fax: [facility] [address] [address] Phone: tel: fax: Referral ID Status Reason Start Date Expiration Date Visits Re quested Visits Authorized [id number] Closed 11/01/2020 11/01/2021 1 1 Reason for Visit * Diagnostic Imaging (Routine) - Closed Specialty Diagnoses / Procedures Referred By Contac t Referred To Contact Radiology Diagnoses Date of last menstrual period (LMP) unknown Procedures US Ob Transvaginal Elmira Hull MD [address] [address] Phone: tel: fax: [facility] [address] [address] Phone: tel: fax: Referral ID Status Reason Start Date Expiration Date Visits Re quested Visits Authorized [id number] Closed 11/01/2020 11/01/2021 1 1 Encounter Details Date Type Department Care Team (Latest Contact Info) Description 11/09/2020 8:30 AM EDT Hospital Encounter [facility] [place] [phone] Date of last menstrual period (LMP) unknown Social History Tobacco Use Types Packs/Day Years Used Date Smoking Tobacco: Former Cigarettes Q uit: 03/2022 Smokeless Tobacco: Never Alcohol Use Standard Drinks/Week Comments Not Currently 0 (1 standard drink = 0.6 oz pur e alcohol) none since 08/24/2018 AUDIT-C Answer Date Recorded Q1: How often do you have a drink containing alcohol? Never 10/22/2022 Q2: How many drinks containi ng alcohol do you have on a typical day when you are drinking? Patient does not drink Q3: How often do you have si x or more drinks on one occasion? Never 10/22/2022 Overall Financial Resource Strain (CARDIA) Answe r Date Recorded How hard is it for you to pa y for the very basics like food, housing, medical care, and heating? Not hard at all 10/22/2022 PHQ-2 Answer Date Recorded Retired PHQ-9: Brief Depression Severity Measure Score 0 10/22/2022 Exercise Vital Sign Answer Date Recorde d On average, how many days pe r week do you engage in moderate to strenuous exercise (like a brisk walk)? 4 days 10/22/2022 On average, how many minutes do you engage in exercise at this level? 20 min 10/22/2022 Hunger Vital Sign Answer Date Recorded Within the past 12 months, y ou worried that your food would run out before you got the money to buy more. Never true 10/23/19 23 Within the past 12 months, t he food you bought just didn't last and you didn't have money to get more. Never true 10/22/2022 PRAPARE - Transportation Answer Date Re corded In the past 12 months, has l ack of transportation kept you from medical appointments or from getting medications? No 10/01 In the past 12 months, has l ack of transportation kept you from meetings, work, or from getting things needed for daily living? No 10/22/2022 [place] Depression Scale Answer Date Recorded Retired [place] Depression Score 4 11/07/2022 Retired EPD Scale: Thought of Harming Self Unrec ognized value 11/07/2022 Abuse Screen Answer Date Recorded Unsafe at Home or Work/School Not on file Feels Threatened by Someone? Not on file 05/2023 Does Anyone Keep You from Co ntacting Others or Doint Things Outside the Home? Not on file 11/02/2023 Physical Sign of Abuse Present Not on file 0 11/02/2023 Housing Stability Answer Date Recorded Current Living Arrangements Not on file 05/2023 Potentially Unsafe Housing Conditions Not on octaviano e 11/02/2023 Family and Community Support Answer Aron e Recorded Help with Day-to-Day Activities Not on file 11/02/2023 Lonely or Isolated Not on file 11/02/2023 Employment Answer Date Recorded Do you want help finding or keeping work or a jose b? Not on file 11/02/2023 Disabilities Answer Date Recorded Concentrating, Remembering, or Making Decisions Difficulty Not on file 11/02/2023 Doing Errands Independently Difficulty Not on fi le 11/02/2023 Education Answer Date Recorded Help with school or training? 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 Never 10/22/2022 3:37 AM Geno Keith RN Q2: How many drinks containing alcohol do you have on a typical day when you are drinking? Patient does not drink 10/22/2022 3:37 AM Geno Keith RN Q3: How often do you have six or more drinks on one occasion? Never 10/22/2022 3:37 AM EDT Geno Mariscal RN documented as of this encounter Plan of Treatment Not on file documented as of this encounter Procedures Procedure Name Priority Date/Time Associated Diagnosis Comments US OB TRANSVAGINAL Routine 11/09/2020 9: 26 AM EDT Date of last menstrual period (LMP) unknown documented in this encounter Results * US Ob Transvaginal (11/09/2020 9:26 AM EDT) Anatomical Region Laterality Modality Body Ultrasound 11/09/2020 9:17 AM EDT Narrative 11/09/2020 10:28 AM EDT PAT NAME: HALEY OJEDA MED REC#: [id number] DA: [id number] PAT GEND: F PAT TYPE: O EXAM ARON: [id number] REF PHYS ELMIRA HULL Indication ======== Dating Comparison Studies There are no relevant prior studies to which this study is being compared Method ====== Transvaginal ultrasound examination, Voluson E8. View: Adequate view ========= Acevedo . Number of fetuses: 1 Single intrauterine present Dating ====== Cycle: LMP date not known, irregular cycle Method of dating: based on ultrasound Ultrasound examination on: 11/09/2020 GA by U/S based upon: CRL GA by U/S 8 w + 3 d JOHN by U/S: 06/18/2021 Assigned: based on ultrasound (CRL), selected on 11/09/2020 Assigned GA 8 w + 3 d Assigned JOHN: 06/18/2021 length 280 d Assessment Gestational sac: visualized Yolk sac: visualized Embryo: visualized CRL 19.0 mm 8w 3d 77% Hadlock Cardiac activity: present FHR 171 bpm Placenta: Too early to evaluate Maternal Structures Uterus / Cervix Uterus: Visualized Cervix: Visualized Ovaries / Tubes / Adnexa Rt ovary: Visualized Lt ovary: Visualized Impression ========= Single viable intrauterine with normal cardiac activity Recommendation Follow-up as clinically indicated. Enterprise Engineer: Minna Avalos RN, RDMS Physician: Elmira Hull MD Electronically signed by: Elmira Hull MD at: 10:28 Procedure Note Elmira Hull MD - 11/09/2020 PAT NAME: HALEY OJEDA [facility] REC#: [id number] DA: [id number] PAT GEND: F PAT TYPE: O EXAM ARON: [id number] REF PHYS ELMIRA HULL Indication ======== Dating Comparison Studies There are no relevant prior studies to which this study is beingcompared Method ====== Transvaginal ultrasound examination, Voluson E8. View: Adequate view ========= Acevedo . Number of fetuses: 1 Single intrauterine present Dating ====== Cycle:LMP date not known, irregular cycle Method of dating:based on ultrasound Ultrasound examination on:11/09/2020 GA by U/S based upon:CRL GA by U/S8 w + 3 d JOHN by U/S:06/18/2021 Assigned:based on ultrasound (CRL), selected on 11/09/2020 Assigned GA8 w + 3 d Assigned JOHN:06/18/2021 [email or web address] d Assessment Gestational sac:visualized Yolk sac:visualized Embryo:visualized CRL19.0 mm 8w 3d 77% Hadlock Cardiac activity:present [id number] bpm Placenta:Too early to evaluate Maternal Structures Uterus / Cervix Uterus:Visualized Cervix:Visualized Ovaries / Tubes / Adnexa Rt ovary:Visualized Lt ovary:Visualized Impression ========= Single viable intrauterine with normal cardiac activity Recommendation Follow-up as clinically indicated. Enterprise Engineer: Minna Avalos RN, RDMS Physician: Elmira Hull MD Electronically signed by: Elmira Hull MD at: 10:28 us Elmira Hull MD IMG US ORDERABLES Final Res ult documented in this encounter Visit Diagnoses Diagnosis Date of last menstrual period (LMP) unknown documented in this encounter Additional Health Concerns Infection Onset Date Last Indicated Resolved Time COVID Screen (preop/placement) 06/15/2021 06/17/2021 06/17/2021 6:15 PM EDT documented as of this encounter Care Teams Chief Projectionist Relationship Specialty Start Date End Date Provider, No Known [facility] [place] [address] PCP - General 03/18/19 documented as of this encounter
[2024-12-23 16:54] LABS: HCG Qualitative, Serum Positive (Negative)
--- OUTSIDE RECORDS SUMMARY | 2024-12-24 10:05 | XMS_ITS | Referral Summary ---
Author Organization [employer] ([place], [place], [place], [place]) Address [address] [place] [address] Care Team Providers Care Finisher Fiberglass Boat Parts Name Role Phone Unavailable Primary Care Provider Unavailabl e Social History Tobacco Use Types Packs/Day Years Used Date Smoking Tobacco: Never Assessed Comments Unknown Sex and Gender Information Value Date Recorded Sex Assigned at Female 09/27/2021 3:38 PM CDT Legal Sex Female 3:38 PM CDT Gender Identity Female 09/27/2021 3:38 PM CDT Sexual Orientation Not on file Plan of Treatment Not on file
--- OUTSIDE RECORDS SUMMARY | 2024-12-24 10:05 | XMS_ITS | Clinical Summary ---
Author Organization [employer] ([place], [place], [place], [place]) Address [address] [place] [address] Care Team Providers Care Metal Fabricating Inspector Name Role Phone Unavailable Primary Care Provider [...]
--- OUTSIDE RECORDS SUMMARY | 2024-12-24 10:05 | XMS_ITS | Encounter Summary ---
Author Organization [employer] ([place], [place], [place], [place]) Address [address] [place] [address] Care Team Providers Care Transcriptionist Name Role Phone Unavailable Primary Care Provider Unavailabl e Encounter Details Date Type Department Care Team (Late st Contact Info) Description 06/11/2020 Transcribed Document [facility] [place] [facility] [place] [address] ProviderDeclan MD [address] [place] [address] Social History Tobacco Use Types Packs/Day Years Used Date Smoking Tobacco: Never Assessed Comments Unknown Sex and Gender Information Value Date Recorded Sex Assigned at Female 09/27/2021 3:38 PM CDT Legal Sex Female 3:38 PM CDT Gender Identity Female 09/27/2021 3:38 PM CDT Sexual Orientation Not on file documented as of this encounter Miscellaneous Notes * [employer] Conversion Note - Historical ProviderMD - 06/11/2020 2:47 PM MANAGER SCIENCE Urine Culture Collected: 06/08/2020 02:07 Entaer Complete Body site: Specimen Type: U CleanCatch 06/11/2020 09:45 06/11/2020 14:47 (MEL LUNA PA) Reviewed by Provider, No further action required documented in this encounter Plan of Treatment Not on file documented as of this encounter Visit Diagnoses Not on filedocumented in this encounter
--- OUTSIDE RECORDS SUMMARY | 2024-12-24 10:05 | XMS_ITS | Encounter Summary ---
Author Organization [employer] ([place], [place], [place], [place]) Address [address] [place] [address] Care Team Providers Care Dietary Service Aide Name Role Phone Unavailable Primary Care Provider Unavailabl e Encounter Details Date Type Department Care Team (Late st Contact Info) Description 06/08/2020 Transcribed Document [facility] [place] Family Medicine [facility] [place] [address] ProviderDeclan MD [address] [place] [address] Social History Tobacco Use Types Packs/Day Years Used Date Smoking Tobacco: Never Assessed Comments Unknown Sex and Gender Information Value Date Recorded Sex Assigned at Female 09/27/2021 3:38 PM CDT Legal Sex Female 3:38 PM CDT Gender Identity Female 09/27/2021 3:38 PM CDT Sexual Orientation Not on file documented as of this encounter Miscellaneous Notes * [employer] Conversion Note - Declan ProviderMD - 06/08/2020 3:02 AM ITINERANT TEACHER ASSISTANT Electronically signed by Brandy [facility] Conversion Hotel Services Sales Representative Radha at 07/17/2022 9:34 AM CDT documented in this encounter Plan of Treatment Not on file documented as of this encounter Visit Diagnoses Not on filedocumented in this encounter
--- OUTSIDE RECORDS SUMMARY | 2024-12-24 10:05 | XMS_ITS | Encounter Summary ---
Author Organization [employer] ([place], [place], [place], [place]) Address [address] [place] [address] Care Team Providers Care Retail Field Representative Name Role Phone Unavailable Primary Care Provider Unavailabl e Encounter Details Date Type Department Care Team (Late st Contact Info) Description 06/08/2020 Transcribed Document [facility] [place] [facility] [place] [address] ProviderDeclan MD [address] [place] [address] Social History Tobacco Use Types [...] Conversion Note - Declan ProviderMD - 06/08/2020 3:22 AM VP PRODUCT MARKETING ED Discharge Entered On: 06/08/2020 3:23 EST Performed On: 06/08/2020 3:22 EST by Aleta Smith RN Discharge Process Patient Disposition : Discharge Personal Belongings With Patient : Yes Patient Education Completed : Yes Teaching Evaluation : Verbalizes understanding Education Comment : instructiosn on seizure precaustions, stopping xanax precaustions and taking xanax. IV Discontinued : Not applicable Nursing Documentation Completed : Yes Aleta Smith RN - 06/08/2020 3:22 EST ED Discharge Discharge To : Home without planned follow-up Mode Of Departure : Ambulatory Accompanied By : Friend Discharge Instructions Reviewed With, Opportunity For Questions Given : Patient Prescriptions Given to Patient : No Aleta Smith RN - 06/08/2020 3:22 EST Electronically signed by Brandy, [facility] Conversion School Admissions Representative Cerner at 07/17/2022 9:50 AM CDT documented in this encounter Plan of Treatment Not on file documented as of this encounter Visit Diagnoses Not on filedocumented in this encounter
--- OUTSIDE RECORDS SUMMARY | 2024-12-24 10:05 | XMS_ITS | Encounter Summary ---
Author Organization [employer] ([place], [place], [place], [place]) Address [address] [place] [address] Care Team Providers Care Boiler Shop Mechanic Name Role Phone Unavailable Primary Care Provider Unavailabl e Encounter Details Date Type Department Care Team (Late st Contact Info) Description 06/08/2020 Transcribed Document [facility] [place] Family Medicine [facility] [place] [address] ProviderDeclan MD [address] [place] [address] Social History Tobacco Use Types [...] Conversion Note - Declan ProviderMD - 06/08/2020 1:44 AM GERONTOLOGICAL NURSE PRACTITIONER Broset Violence Assessment Entered On: 06/08/2020 2:09 EST Performed On: 06/08/2020 1:57 EST by Aleta Smith RN Broset Violence Assessment Broset Violence Checklist of Symptoms : None Broset Violence Symptoms Subtotal : 0 Broset Violence Symptoms Indicator : Low risk (0) Aleta Smith RN - 06/08/2020 1:57 EST documented in this encounter Plan of Treatment Not on file documented as of this encounter Visit Diagnoses Not on filedocumented in this encounter
--- OUTSIDE RECORDS SUMMARY | 2024-12-24 10:05 | XMS_ITS | Encounter Summary ---
Author Organization [facility] ([place], [place], [place]) Address [address] [place] [address] Care Team Providers Care Cofferdam Construction Supervisor Name Role Phone Unavailable Primary Care Provider Unavailabl e Encounter Details Date Type Department Care Team (Late st Contact Info) Description 06/08/2020 Transcribed Document [facility] [place] [facility] [place] [address] ProviderDeclan MD [address] [place] [address] Social History Tobacco Use Types Packs/Day Years Used Date Smoking Tobacco: Never Assessed Comments Unknown Sex and Gender Information Value Date Recorded Sex Assigned at Female 09/27/2021 3:38 PM CDT Legal Sex Female 3:38 PM CDT Gender Identity Female 09/27/2021 3:38 PM CDT Sexual Orientation Not on file documented as of this encounter Miscellaneous Notes * Cerner Conversion Note - Declan Vega MD - 06/08/2020 2:11 AM [employer] SALESPERSON Patient: HALEY OJEDA Age: 20 years Sex: Female : 2000 Associated Diagnoses: Seizure; UTI (urinary tract infection) Author: CLARK GONSALES MD-EMR Basic Information Additional information: Chief Complaint from Nursing Triage Note : Chief Complaint 06/08/2020 1:57 EST Chief Complaint pt had witness seizure tonight lasting 2-3 min - convulsing and confused afterwards per pt. pt states had a seizure two weeks ago after taking a xanax but has not had any recreational drugs today. . History of Present Illness 20-year-old female presents after having had a seizure today. Also had one a couple of weeks ago. She states that she has been using Xanax recreationally, unsure of the dose or how frequently she has been using it. No other health issues. Review of Systems Constitutional symptoms: Negative except as documented in HPI. Skin symptoms: Negative except as documented in HPI. Eye symptoms: Negative except as documented in HPI. ENMT symptoms: Negative except as documented in HPI. Respiratory symptoms: Negative except as documented in HPI. Cardiovascular symptoms: Negative except as documented in HPI. Gastrointestinal symptoms: Negative except as documented in HPI. Genitourinary symptoms Musculoskeletal symptoms: Negative except as documented in HPI. Neurologic symptoms: Negative except as documented in HPI. Psychiatric symptoms: Negative except as documented in HPI. Health Status Allergies: Allergic Reactions (Selected) No Known Allergies. Medications: (Selected) Prescriptions Prescribed Tylenol with Codeine #3 oral tablet: 1 Tab, Oral, Q4H, PRN: for pain, 12 Tab, 0 Refill(s). Past Medical/ Family/ Social History Surgical history: No active procedure history items have been selected or recorded.. Family history: No family history items have been selected or recorded.. Social history: Social & Psychosocial Habits Tobacco 01/10/2017 Smoking Status Current every day smoker Packs/Tins Daily 1 . Problem list: Active Problems (1) No Chronic Problems . Physical Examination Vital Signs Vital Signs/Vital Measures 06/08/2020 1:57 EST Systolic Blood Pressure 149 mmHg HI Diastolic Blood Pressure 71 mmHg Temperature Source Oral Temperature Mode Fahrenheit Temperature, Fahrenheit 98.6 Deg F Clinical Temperature, C 37 Deg C Peripheral Pulse Rate 95 bpm Respiratory Rate 16 Breaths/Min Oxygen Saturation 98 % Oxygen Therapy Mode Room air . Measurements 06/08/2020 1:57 EST Height Source Estimated Height Entry Format [place] Height/Length, SERBIAN (ft) 5 ft Height/Length SERBIAN 3 Inch CLINICALHEIGHT 160.02 cm Nogal Body Weight 52.02 kg Weight Source, ED Critical estimated dosing weight Weight Entry Format [place] Weight Australian lb 115 lb CLINICALWEIGHT 52.27 kg Body Surface Area (BSA) 1.53 m2 Body Mass Index 20.4 kg/m2 . Oxygen Saturation 06/08/2020 1:57 EST Oxygen Saturation 98 % . General: Alert, no acute distress. Yvette coma scale: Per nurse's notes. Neurological: Alert and oriented to person, place, time, and situation, No focal neurological deficit observed, CN II-XII intact. Skin: Warm, dry. Head: Normocephalic, atraumatic. Eye: Pupils are equal, round and reactive to light, extraocular movements are intact. Cardiovascular: Regular rate and rhythm, No murmur. Respiratory: Lungs are clear to auscultation. Gastrointestinal: Soft, Nontender. Psychiatric: Cooperative. Medical Decision Making Differential Diagnosis: Focal seizure, drug withdrawal. Documents reviewed: Emergency department nurses' notes. Results review: Lab results : Lab Results 06/08/2020 2:07 EST Urine Type. U CleanCatch Urine Color Yellow Urine Appearance Slightly Cloudy Urine Specific [place] >=1.030 Urine pH Dipstick 6.0 Urine Leukocyte Esterase Trace Urine Nitrite Negative Urine Protein Dipstick Negative Urine Glucose Dipstick Negative Urine Ketones Dipstick Negative Urine Urobilinogen Dipstick 0.2 EU/dL Urine Bilirubin Dipstick Negative Urine Blood Dipstick Negative Ur RBC 0-2 /HPF Ur WBC 20-50 /HPF Ur Bacteria 4+ Ur Mucous Trace Ur Squamous Epithelial Cells 2-5 /HPF Urine Culture if Indicated Culture Ordered HCG Urine Qualitative Negative . Impression and Plan Diagnosis Seizure - Discharge, Emergency medicine, Medical UTI (urinary tract infection) - Discharge, Emergency medicine, Medical Plan Prescriptions: Prescription Insurance Marketing Rep Pharmacy: Bactrim DS 800 mg-160 mg oral tablet (Prescribe): 1 Tab, Oral, Q12H, for 5 Day(s), 10 Tab, 0 Refill(s). Patient was given the following educational materials: Seizure, Adult, Urinary Tract Infection, Adult, Urinary Tract Infection, Adult, Seizure, Adult. Follow up with: [facility] Within 2 to 3 days; Follow up with primary care provider Within 2 to 3 days Take all antibiotics as prescribed. As we discussed only take medications that are prescribed to you and not for any other reason. Return if worse.. documented in this encounter Plan of Treatment Not on file documented as of this encounter Visit Diagnoses Not on filedocumented in this encounter
--- OUTSIDE RECORDS SUMMARY | 2024-12-24 10:05 | XMS_ITS | Clinical Summary ---
Author Organization [facility] Address [address] [place] [address] Phone Care Team Providers Care Fire Alarm Inspector Name Role Phone Ronen HEAD CLEANING PORTERClaudia Primary Care Physician Conditions or Problems Problem Name Problem Code Onset Date Status Entry Date Provider Comment Standard Description Annotate Body mass index (BMI) 21.0-21.9; adult Z68.21 (ICD-10-CM ) 11/05 Active 11/07 Amisha Jonas APRN Body mass index [BMI] 21.0-21.9, adult Body mass index (BMI) 21.0-21.9; adult Z68.21 (ICD-10-CM ) 11/05 Correction 11/06 Amisha Kinsjulia HEAD CLEANING PORTER Body mass index [BMI] 21.0-21.9, adult Bacterial vaginosis [id number] (SNOMED CT) 11/05 Active 11/07 Amisha Sumi HEAD CLEANING PORTER Bacterial vaginosis Body mass index (BMI) 21.0-21.9; adult Z68.21 (ICD-10-CM ) 11/05 Removed 11/06 Amisha Kinsjulia HEAD CLEANING PORTER Body mass index [BMI] 21.0-21.9, adult Body mass index (BMI) 22.0-22.9; adult Z68.22 (ICD-10-CM ) 08/14 Correction 08/14 Amisha Kinsjulia HEAD CLEANING PORTER Body mass index [BMI] 22.0-22.9, adult Vaginal discharge [id number] (SNOMED CT) 11/05 Active 11/06 Amisha Sumi HEAD CLEANING PORTER Vaginal discharge Burning on urination 90953735 (SNOMED CT) 11/05 Active 11/06 Amisha Jonas APRN Scalding pain on urination Yeast infection 8469297 (SNOMED CT) 11/05 Active 11/05 Amisha Jonas HEAD CLEANING PORTER Mycosis Body mass index (BMI) 22.0-22.9; adult Z68.22 (ICD-10-CM ) 08/14 Removed 08/14 Sebastian Castañeda MD Body mass index [BMI] 22.0-22.9, adult Body mass index (BMI) 22.0-22.9; adult Z68.22 (ICD-10-CM ) 04/07 Correction 04/07 Sebastian Castañeda MD Body mass index [BMI] 22.0-22.9, adult Tobacco User [id number] (SNOMED CT) 08/14 Active 08/14 Sebastian Castañeda MD Tobacco user Otitis Externa 7403932 (SNOMED CT) 08/14 Active 08/14 Sebastian Castañeda MD Otitis externa Body mass index (BMI) 22.0-22.9; adult Z68.22 (ICD-10-CM ) 04/07 Removed 04/07 Claudia Hardwick APRN Body mass index [BMI] 22.0-22.9, adult Counseling for nutrition Z71.3 (ICD-10-CM ) 04/07 Inactive 04/07 Claudia Hardwick APRN Dietary counseling and surveillance Physical exam 0841754 (SNOMED CT) 04/07 Active 04/07 Claudia Hardwick APRN Physical examination Hx of genital herpes 776578017 (SNOMED CT) 04/07 Active 04/07 Claudia Hardwick APRN History of sexually transmitted disease Establish care or get acquainted visit 380268354 (SNOMED CT) 04/07 Active 04/07 Claudia Hardwick APRN Procedure carried out on subject Medications Medication Instructions Start Date Stop Date Generic Name NDC Provider METRONIDAZOLE 500 MG TABS Take 1 tablet by mouth twice a day FOR 7 DAYS. DO NOT DRINK ALCOHOL WHILE TAKING THIS MEDICATION TAKE WITH FOOD metronidazole [id number] Amisha Jonas APRN OFLOXACIN 0.3 % SOLN Instill 5 drop into affected ear twice a day to the affected ear for 7 days. ofloxacin [id number] Sebastian Castañeda MD Medications Administered No information available. Allergies, Adverse Reactions, Alerts Observed no known allergies at Results Date Name Value Unit Range Flag Description Lab Report: BV/VAGINITIS BENTLEY EL DNA PROBE, CHLAMYDIA/N. GONORRHOEAE RNA, ... DNAPROBECAND NOT DETECTED NOT DETECTED N Yadira guilliermondii DNA [Presence] in Specimen by DAVE with probe detection VAGCULTGARDN DETECTED NOT DETECTED A Va ginal Culture Gardnerella TRICHO WET NOT DETECTED NOT DETECTED N Trichomonas vaginalis [Presence] in Genital specimen by Wet preparation Plan of Care Type Date Detail Pending order T2 BV Yeast Tric h Culture (Affirm) Pending order T1 G.C. Chlamydi a Pending order ANTI-HAV Pending Order exclud ed from report: Pending order RC Quantiferon Patient education Patient Educat ion Given Procedures Code Procedure Name Date Entry Date CPT-1159F Medication list docu mented in medical record CPT-3074F Most recent systolic blood pressure <130 mm Hg CPT-3078F Most recent diastoli c blood pressure <80 mm Hg [facility] [id number] T2 BV Yeast Trich Culture (Affirm) 11/05 [facility] 41519 T1 G.C. Chlamydia 4004F Patient screened for tobacco use and received tobacco cessation intervention [facility]-[id number] Medication Reconciliation [facility]-[id number] Never smoker [facility]-[id number] Smoking cessation education [facility]-[id number] Medication Reconciliation 4004F Patient screened for tobacco use and received tobacco cessation intervention CPT-26932 ANTI-HAV CPT-3074F Most recent systolic blood pressure <130 mm Hg CPT-3078F Most recent diastoli c blood pressure <80 mm Hg [facility]-[id number] Medication Reconciliation [facility] 32020 RC Quantiferon Vital Signs Date Name Value Unit Description BMI (Body Mass Index) 21.45 kg/m2 Bod y Mass Index (Ratio) Body Temperature 98 [degF] temperat ure E&M Body Temperature 36.67 Tiffanie temperat ure in centigrade E&M BP Diastolic 68 mm[Hg] blood pressu re, diastolic BP Systolic 117 mm[Hg] blood pressur e, systolic BSA (Body Surface Area) 1.54 b reba surface area Heart Rate 63 /min pulse rate Height 62.3 [in_us] height E&M Height 158.24 cm height in cent imeters E&M Weight Measured 53.64 kg weight in kilograms E&M Weight Measured 118 [lb_av] weight E& M Weight Measured 118 [lb_av] weight E& M Respiratory Rate 18 /min respirat ory rate E&M Immunizations No information available. Advance Directives No information available.
--- OUTSIDE RECORDS SUMMARY | 2024-12-24 10:05 | XMS_ITS | Clinical Summary ---
Author Organization [facility] Address [address] [place] [address] Care Team Providers Care Pharmacovigilance Safety Expert Name Role Phone Unavailable Primary Care Provider Unavailabl e Social History Tobacco Use Types Packs/Day Years Used Date Smoking Tobacco: Never Assessed Comments Unknown Sex and Gender Information Value Date Recorded Sex Assigned at Not on file Legal Sex Female 8:04 PM EDT Gender Identity Not on file Sexual Orientation Not on file Plan of Treatment Health Maintenance Due Date Last Done Comments [facility]-Depression Screening 2000 [facility]-/Child/Adol SDOH Screenings 2000 [facility]-Varicella Vaccines (1 of 2 - 13+ 2-dose series) 2011 HPV Vaccines (1 - 3-dose series) 2013 [facility]- SDOH Screenings 02/09/2016 [facility]-Adult SDOH Screenings 02/09/2016 [facility]-DTaP,Tdap,and Td Vaccine s (1 - Tdap) 2017 [facility]-Hepatitis B Vaccines (1 of 3 - 19+ 3-dose series) 2017 [facility]-Pap Smear 2019 [facility]-PDEKI-37 Vaccine (1 - 20 24-25 season) 2024 [facility]-Influenza Vaccine (#1) 2024 [facility]-Zoster Vaccines (1 of 2) 02/09/2048 [facility]-HIB Vaccines Aged Out No longer e ligible based on patient's age to complete this topic [facility]-Hepatitis A Vaccines Aged Out No longer eligible based on patient's age to complete this topic [facility]-IPV Vaccines Aged Out No longer e ligible based on patient's age to complete this topic [facility]-Pneumococcal Vaccine: Pediatrics (0 to 5 Years) and At-Risk Patients (6 to 49 Years) Aged Out No long er eligible based on patient's age to complete this topic [facility]-Rotavirus Vaccines Aged Out No lo nger eligible based on patient's age to complete this topic
--- OUTSIDE RECORDS SUMMARY | 2024-12-24 10:05 | XMS_ITS | Encounter Summary ---
Author Organization [employer] ([place], [place], [place], [place]) Address [address] [place] [address] Care Team Providers Care Care Program Resident Name Role Phone Unavailable Primary Care Provider Unavailabl e Encounter Details Date Type Department Care Team (Late st Contact Info) Description 06/08/2020 Transcribed Document [facility] [place] [address] [place] [address] ProviderDeclan MD [address] [place], [place] [phone] Social History Tobacco Use Types Packs/Day Years [...] - Declan ProviderMD - 06/08/2020 1:44 AM BACK HOE MACHINE OPERATOR [place] Suicide Severity Rating Scale (C-SSRS) Entered On: 06/08/2020 2:09 EST Performed On: 06/08/2020 1:57 EST by Aleta Smith RN [facility] Suicide Severity Rating Scale (C-SSRS) CSSRS Past Month Wish to be : No CSSRS Past Month Suicidal Thoughts : No CSSRS Lifetime Suicide Behavior : No Suicide Severity Rating Score : 0 Suicide Severity Rating : No Additional Care Required at this time Aleta Smith RN - 06/08/2020 1:57 EST documented in this encounter Plan of Treatment Not on file documented as of this encounter Visit Diagnoses Not on filedocumented in this encounter
--- OUTSIDE RECORDS SUMMARY | 2024-12-24 10:05 | XMS_ITS | Encounter Summary ---
Author Organization [employer] ([place], [place], [place], [place]) Address [address] [place] [address] Care Team Providers Care Dobie Man Name Role Phone Unavailable Primary Care Provider Unavailabl e Encounter Details Date Type Department Care Team (Late st Contact Info) Description 06/08/2020 Transcribed Document [facility] [place] [facility] [place] [address] ProviderDeclan MD [address] [place] [address] Social History Tobacco Use Types [...] Note - Declan Vega MD - 06/08/2020 3:04 AM FACULTY ADMINISTRATOR [facility] [address] [place] [address] HALEY GARCIA :2000 Visit Time:06/08/2020 Your Visit Summary Your Care Team Primary Provider: CLARK GONSALES Secondary Provider: Your Diagnosis Seizure Seizure UTI (urinary tract infection) Medical Information You may obtain a copy of your Emergency Department visit from Medical Records by calling the hospital phone number listed above and asking to be directed to the Medical Records Department. If you had special tests, such as EKG???s or X-rays, the interpretation of your tests given to you by the Emergency Department Physician is a preliminary report. Some fractures and illnesses fail to show up on preliminary tests. These will be reviewed again and we will call you if there are any new suggestions. If your symptoms continue notify your physician. After you leave, you should follow the instructions provided. What to do next Follow-Up Appointments Follow Up with Follow up with primary care provider When Within 2 to 3 days Comments Take all antibiotics as prescribed. As we discussed only take medications that are prescribed to you and not for any other reason. Return if worse. Follow Up with NO [facility] When Within 2 to 3 days Allergies No Known Allergies Immunizations This Visit No Immunizations Found Medications What How Much When Instructions Next Dose sulfamethoxazole-trimethoprim (Bactrim DS 800 mg-160 mg oral tablet) 1 Tablet(s) Oral Every 12 hours Duration: 5 Day(s) Printed Prescription acetaminophen-codeine (Tylenol with Codeine #3 oral tablet) 1 Tablet(s) Oral Every 4 Hours as needed for for pain The home medications listed are only as accurate as the information you provided. Please continue taking all of your medications prescribed by your Primary Care Provider unless specifically told to change or discontinue the medication. Please direct any questions regarding your home medications to your Primary Care Provider. Take your medications faithfully. Do NOT skip medication. Do NOT stop taking medications without the direction of a physician. Carry a list of your medications with you at all times, and take this medication list with you to your first follow up visit. Report any side effects. Avoid herbal remedies unless discussed with your physician. As part of your treatment plan, your physician may have prescribed a limited course of a controlled substance. This medication may be given to help people with moderate or severe pain or for other medical conditions, but there are risks involved with treatment. Common side effects may include nausea, constipation, drowsiness, sweating, itching, dry mouth, and rash. More serious side effects may include cognitive and motor impairment, like problems with thinking, concentrating, alertness, and movement (e.g. slowed reflexes), and driving and operating heavy machinery can be dangerous. It is important for you to talk to your physician if you have these side effects or questions. These controlled substances can produce physical dependence and be habit-forming if taken for an extended period of time, which means that the body has gotten used to them and may experience withdrawal symptoms if they are abruptly stopped. Withdrawal symptoms can include runny nose, sweating, goose bumps, diarrhea, abdominal cramping, rapid heartbeat, difficulty sleeping, and nervousness. Please dispose of unused and medications per pharmacy guidance. Test Results Laboratory or Other Results This Visit (last charted value for your 06/08/2020 visit) Urinalysis 06/08/2020 2:07 AM Ur RBC: 0-2 /HPF Urine Nitrite: Negative Urine Leukocyte Esterase: Trace Urine Appearance: Slightly Cloudy Urine Glucose Dipstick: Negative Urine Blood Dipstick: Negative Urine Urobilinogen Dipstick: 0.2 EU/dL Urine Protein Dipstick: Negative Ur Bacteria: 4+ Ur Squamous Epithelial Cells: 2-5 /HPF Urine Color: Yellow Ur WBC: 20-50 /HPF Urine Ketones Dipstick: Negative Ur Mucous: Trace Urine pH Dipstick: 6.0 -- Normal range between ( 6.0 and 8.0 ) Urine Bilirubin Dipstick: Negative Urine Specific [place]: >=1.030 -- Normal range between ( 1.005 and 1.030 ) Urine Type.: U CleanCatch Urine Culture if Indicated: Culture Ordered Endocrinology 06/08/2020 2:07 AM HCG Urine Qualitative: Negative Education [employer] Urinary Tract Infection, Adult A urinary tract infection (UTI) is an infection of any part of the urinary tract. The urinary tract includes the kidneys, ureters, bladder, and urethra. These organs make, store, and get rid of urine in the body. Your health care provider may use other names to describe the infection. An upper UTI affects the ureters and kidneys (pyelonephritis). A lower UTI affects the bladder (cystitis) and urethra (urethritis). What are the causes? Most urinary tract infections are caused by bacteria in your genital area, around the entrance to your urinary tract (urethra). These bacteria grow and cause inflammation of your urinary tract. What increases the risk? You are more likely to develop this condition if: ??? You have a urinary catheter that stays in place (indwelling). ??? You are not able to control when you urinate or have a bowel movement (you have incontinence). ??? You are female and you: ? Use a spermicide or diaphragm for control. ? Have low estrogen levels. ? Are . ??? You have certain genes that increase your risk (genetics). ??? You are sexually active. ??? You take antibiotic medicines. ??? You have a condition that causes your flow of urine to slow down, such as: ? An enlarged prostate, if you are male. ? Blockage in your urethra (stricture). ? A kidney stone. ? A nerve condition that affects your bladder control (neurogenic bladder). ? Not getting enough to drink, or not urinating often. ??? You have certain medical conditions, such as: ? Diabetes. ? A weak disease-fighting system (immunesystem). ? Sickle cell disease. ? Gout. ? Spinal cord injury. What are the signs or symptoms? Symptoms of this condition include: ??? Needing to urinate right away (urgently). ??? Frequent urination or passing small amounts of urine frequently. ??? Pain or burning with urination. ??? Blood in the urine. ??? Urine that smells bad or unusual. ??? Trouble urinating. ??? Cloudy urine. ??? Vaginal discharge, if you are female. ??? Pain in the abdomen or the lower back. You may also have: ??? Vomiting or a decreased appetite. ??? Confusion. ??? Irritability or tiredness. ??? A fever. ??? Diarrhea. The first symptom in older adults may be confusion. In some cases, they may not have any symptoms until the infection has worsened. How is this diagnosed? This condition is diagnosed based on your medical history and a physical exam. You may also have other tests, including: ??? Urine tests. ??? Blood tests. ??? Tests for sexually transmitted infections (STIs). If you have had more than one UTI, a cystoscopy or imaging studies may be done to determine the cause of the infections. How is this treated? Treatment for this condition includes: ??? Antibiotic medicine. ??? Inyr-baf-cfsykrx medicines to treat discomfort. ??? Drinking enough water to stay hydrated. If you have frequent infections or have other conditions such as a kidney stone, you may need to see a health care provider who specializes in the urinary tract (urologist). In rare cases, urinary tract infections can cause sepsis. Sepsis is a life-threatening condition that occurs when the body responds to an infection. Sepsis is treated in the hospital with IV antibiotics, fluids, and other medicines. Follow these instructions at home: Medicines ??? Take kgbt-ajy-rpelvtg and prescription medicines only as told by your health care provider. ??? If you were prescribed an antibiotic medicine, take it as told by your health care provider. Do not stop using the antibiotic even if you start to feel better. General instructions ??? Make sure you: ? Empty your bladder often and completely. Do not hold urine for long periods of time. ? Empty your bladder after sex. ? Wipe from front to back after a bowel movement if you are female. Use each tissue one time when you wipe. ??? Drink enough fluid to keep your urine pale yellow. ??? Keep all follow-up visits as told by your health care provider. This is important. Contact a health care provider if: ??? Your symptoms do not get better after 1???2 days. ??? Your symptoms go away and then return. Get help right away if you have: ??? Severe pain in your back or your lower abdomen. ??? A fever. ??? Nausea or vomiting. Summary ??? A urinary tract infection (UTI) is an infection of any part of the urinary tract, which includes the kidneys, ureters, bladder, and urethra. ??? Most urinary tract infections are caused by bacteria in your genital area, around the entrance to your urinary tract (urethra). ??? Treatment for this condition often includes antibiotic medicines. ??? If you were prescribed an antibiotic medicine, take it as told by your health care provider. Do not stop using the antibiotic even if you start to feel better. ??? Keep all follow-up visits as told by your health care provider. This is important. This information is not intended to replace advice given to you by your health care provider. Make sure you discuss any questions you have with your health care provider. Document Released: 12/27/2005 Document Revised: 03/06/2019 Document Reviewed: 09/26/2018 [employer] Patient Education ?? 2020 [employer] Seizure, Adult A seizure is a sudden burst of abnormal electrical activity in the brain. Seizures usually last from 30 seconds to 2 minutes. The abnormal activity temporarily interrupts normal brain function. A seizure can cause many different symptoms depending on where in the brain it starts. What are the causes? Common causes of this condition include: ??? Fever or infection. ??? Brain abnormality, injury, bleeding, or tumor. ??? Low blood sugar. ??? Metabolic disorders or other conditions that are passed from parent to child (are inherited). ??? Reaction to a substance, such as a drug or a medicine, or suddenly stopping the use of a substance (withdrawal). ??? Stroke. ??? Developmental disorders such as autism or cerebral palsy. In some cases, the cause of this condition may not be known. Some people who have a seizure never have another one. Seizures usually do not cause brain damage or permanent problems unless they are prolonged. A person who has repeated seizures over time without a clear cause has a condition called epilepsy. What increases the risk? You are more likely to develop this condition if you have: ??? A family history of epilepsy. ??? Had a tonic-clonic seizure in the past. This is a type of seizure that involves whole-body contraction of muscles and a loss of consciousness. ??? Autism, cerebral palsy, or other brain disorders. ??? A history of head trauma, lack of oxygen at , or strokes. What are the signs or symptoms? There are many different types of seizures. The symptoms of a seizure vary depending on the type of seizure you have. Examples of symptoms during a seizure include: ??? Uncontrollable shaking (convulsions). ??? Stiffening of the body. ??? Loss of consciousness. ??? Head nodding. ??? Staring. ??? Not responding to sound or touch. ??? Loss of bladder or bowel control. Some people have symptoms right before a seizure happens (aura) and right after a seizure happens (postictal). Symptoms before a seizure may include: ??? Fear or anxiety. ??? Nausea. ??? Feeling like the room is spinning (vertigo). ??? A feeling of having seen or heard something before (d??j?? vu). ??? Odd tastes or smells. ??? Changes in vision, such as seeing flashing lights or spots. Symptoms after a seizure may include: ??? Confusion. ??? Sleepiness. ??? Headache. ??? Weakness on one side of the body. How is this diagnosed? This condition may be diagnosed based on: ??? A description of your symptoms. Video of your seizures can be helpful. ??? Your medical history. ??? A physical exam. You may also have tests, including: ??? Blood tests. ??? CT scan. ??? MRI. ??? Electroencephalogram (EEG). This test measures electrical activity in the brain. An EEG can predict whether seizures will return (recur). ??? A spinal tap (also called a lumbar puncture). This is the removal and testing of fluid that surrounds the brain and spinal cord. How is this treated? Most seizures will stop on their own in under 5 minutes, and no treatment is needed. Seizures that last longer than 5 minutes will usually need treatment. Treatment can include: ??? Medicines given through an IV. ??? Avoiding known triggers, such as medicines that you take for another condition. ??? Medicines to treat epilepsy (antiepileptics), if epilepsy caused your seizures. ??? Surgery to stop seizures, if you have epilepsy that does not respond to medicines. Follow these instructions at home: Medicines ??? Take gmkh-tzl-gcllkqm and prescription medicines only as told by your health care provider. ??? Avoid any substances that may prevent your medicine from working properly, such as alcohol. Activity ??? Do not drive, swim, or do any other activities that would be dangerous if you had another seizure. Wait until your health care provider says it is safe to do them. ??? If you live in the [place] check with your local DMV (department of motor vehicles) to find out about local driving laws. Each state has specific rules about when you can legally return to driving. ??? Get enough rest. Lack of sleep can make seizures more likely to occur. Educating others Teach friends and family what to do if you have a seizure. They should: ??? Lay you on the ground to prevent a fall. ??? Cushion your head and body. ??? Loosen any tight clothing around your neck. ??? Turn you on your side. If vomiting occurs, this helps keep your airway clear. ??? Not hold you down. Holding you down will not stop the seizure. ??? Not put anything into your mouth. ??? Know whether or not you need emergency care. For example, they should get help right away if you have a seizure that lasts longer than 5 minutes or have several seizures in a row. ??? Stay with you until you recover. General instructions ??? Contact your health care provider each time you have a seizure. ??? Avoid anything that has ever triggered a seizure for you. ??? Keep a seizure diary. Record what you remember about each seizure, especially anything that might have triggered the seizure. ??? Keep all follow-up visits as told by your health care provider. This is important. Contact a health care provider if: ??? You have another seizure. ??? You have seizures more often. ??? Your seizure symptoms change. ??? You continue to have seizures with treatment. ??? You have symptoms of an infection or illness. This might increase your risk of having a seizure. Get help right away if: ??? You have a seizure that: ? Lasts longer than 5 minutes. ? Is different than previous seizures. ? Leaves you unable to speak or use a part of your body. ? Makes it harder to breathe. ??? You have: ? A seizure after a head injury. ? Multiple seizures in a row. ? Confusion or a severe headache right after a seizure. ??? You do not wake up immediately after a seizure. ??? You injure yourself during a seizure. These symptoms may represent a serious problem that is an emergency. Do not wait to see if the symptoms will go away. Get medical help right away. Call your local emergency services (911 in the [place] Do not drive yourself to the hospital. Summary ??? Seizures are caused by abnormal electrical activity in the brain. The activity disrupts normal brain function and can cause various symptoms, such as convulsions, abnormal movements, or a change in consciousness. ??? There are many causes of seizures, including illnesses, medicines, genetic conditions, head injuries, strokes, tumors, substance abuse, or substance withdrawal. ??? Most seizures will stop on their own in under 5 minutes. Seizures that last longer than 5 minutes are a medical emergency and require immediate treatment. ??? Many medicines are used to treat seizures. Take gdsd-lej-rglmyzx and prescription medicines only as told by your health care provider. This information is not intended to replace advice given to you by your health care provider. Make sure you discuss any questions you have with your health care provider. Document Released: 03/16/2001 Document Revised: 06/06/2019 Document Reviewed: 06/06/2019 [employer] Patient Education ?? 2020 [employer] Emergency Awareness and Preventative Care STROKE is an EMERGENCY Every Minute Counts Act FAST and Check for these signs: FACE Does the face look uneven? ARM Does one arm drift down? SPEECH Does their speech sound strange? TIME Call at any sign of stroke Stroke Risk Factors Atrial Fibrillation (irregular heartbeat) Diabetes Family history of stroke Heart Disease Heavy alcohol use High Blood Pressure High Cholesterol Physical inactivity and obesity Smoking Cigarette Smoking The facts are clear, cigarette smoking will shorten your life. Smoking can cause many illnesses along the way. As a healthcare provider, we recommend that you stop smoking. Assistance with quitting is available by contacting 2-690-YIAENOW. This is a free resource providing counseling, support, and referral. Or you may contact your personal physician. [employer] Suicide Prevention Lifeline: The National Suicide Prevention Lifeline is a national network of local crisis centers that provides free and confidential emotional support to people in suicidal crisis or emotional distress 24 hours a day, 7 days a week. Don't Wait! Stop a Heart Attack Before it Starts What is a heart attack? A heart attack is damage or to a part of the heart from severely decreased or lack of blood flow to the heart. Over time, arteries can become narrow from the buildup of fat and cholesterol, which is called plaque. The plaque can rupture causing a blood clot to form. When the blood clot forms, the artery can become severely narrowed or completely blocked, causing a heart attack. Heart attack is the leading cause of in the [place]. 85% of muscle damage occurs within the first 2 hours. Delay in the recognition of heart attack symptoms increases the chances of . Know the early symptoms of a heart attack: Nausea Feeling of fullness in chest Jaw Pain Pain that travels down one or both arms Fatigue/being tired Anxiety Back Pain Chest pressure, squeezing, or discomfort Shortness of breath Sweating, or a cold sweat Feeling of impending doom There are unusual signs of a heart attack, too! Women, the elderly, and diabetics may present with atypical symptoms: Fainting/dizziness Weakness Confusion Risk Factors for a Heart Attack Some heart disease risk factors, such as age and family history, cannot be changed. Others, like smoking and lack of exercise, can be changed. Smoking High Cholesterol High Blood Pressure Family History Obesity Age Gender (Males are at higher risk) Lack of Exercise Diabetes Diet Stress Excessive Alcohol Intake If you or someone you know is experiencing the signs and symptoms of a heart attack, DON???T DELAY. Call immediately and seek help. If someone collapses, perform CPR! Do not attempt to drive if you are having symptoms of heart attack. Hands-Only CPR Why Hands-Only CPR? Hands-Only CPR has been shown to be as effective as conventional CPR for cardiac arrests that occur outside of a hospital. Survival depends on immediately receiving CPR from someone nearby. How do you perform Hands-Only CPR? There are two easy steps: Call if you see a teen or adult collapse Push hard and fast in the center of the chest at a beat of 100 beats per minute. Save a life! 4 WAYS TO GET AHEAD OF SEPSIS SEPSIS is a MEDICAL EMERGENCY. Time matters! Infections put you and your family at risk for a life-threatening condition called sepsis. Sepsis is the body's extreme response to an infection. It is life-threatening, and without timely treatment, sepsis can rapidly lead to tissue damage, organ failure, and . Sepsis happens when an infection you already have-in your skin, lungs, urinary tract or somewhere else-triggers a chain reaction throughout your body. 1 PREVENT INFECTIONS Take good care of chronic conditions. Talk to your doctor about getting the recommended vaccines. 2 PRACTICE GOOD HYGIENE Wash your hands frequently. Keep cuts or open sores clean and covered until they are healed. 3 KNOW THE SYMPTOMS Confusion or disorientation Shortness of breath High heart rate Fever, shivering, or feeling very cold Extreme pain or discomfort Clammy or sweaty skin 4 ACT FAST Get medical care IMMEDIATELY if you suspect sepsis or if you have an infection that is not getting better or is getting worse. To learn more about sepsis and how to prevent infections, visit www.cdc.gov/sepsis. The examination and treatment you have received in the Emergency Department has been done to provide an appropriate evaluation and stabilizing treatment on an emergency basis only. Given the limited resources, it is not meant to be a substitute for complete medical care. The follow-up doctor you named will receive a copy of your records and all test reports. IT IS IMPORTANT THAT YOU SCHEDULE A FOLLOW-UP APPOINTMENT AND ARE RE-EVALUATED. You should report any new complaints, symptoms, or remaining problems at that time. IT IS IMPOSSIBLE FOR THE EMERGENCY DEPARTMENT TO RECOGNIZE AND TREAT ALL ELEMENTS OF INJURY OR ILLNESS IN A SINGLE VISIT. If you have been referred to a specialist physician, it means that we believe you may have a condition that requires the expertise of a specialist. These physicians work in partnership with the hospital and have agreed to see referred patients in their office for further evaluation. KEEP IN MIND THAT THE SPECIALIST HAS HIS/HER OWN OFFICE POLICIES WHICH MAY REQUIRE PROPER INSURANCE OR PAYMENT UP FRONT BEFORE THE SPECIALIST WILL SEE YOU. It is your responsibility to call the specialist physician to make an appointment. We do not have the ability to refer patients to specialists/physicians that work with specific insurance companies. Please be advised that all financial charges or billing practices are determined by that practice, not the hospital. If your insurance company requires that you see a specialist from their approved list, it is your responsibility to contact your insurance company to make those arrangements. It is also your responsibility to follow any other requirements of your insurance company necessary to obtain coverage for claims submitted. We will bill your insurance; however, you are responsible today for any co-pay amounts. You will receive a separate bill for any services you may have received including: emergency, radiology, or pathology physicians. Patient Name:HALEY GARCIA I have received this information and was given the opportunity to ask questions. Patient/Medical Pathologist Name: Patient/Medical Pathologist Signature: Relationship to Patient: Clinician/Hospital Medical Pathologist Signature: Please Provide a Telephone Number Where You Can Be Reached: Is it Permissible To Leave a Message? Date: documented in this encounter Plan of Treatment Not on file documented as of this encounter Visit Diagnoses Not on filedocumented in this encounter
--- OUTSIDE RECORDS SUMMARY | 2024-12-24 10:05 | XMS_ITS | Encounter Summary ---
Author Organization [employer] ([place], [place], [place], [place]) Address [address] [place] [address] Care Team Providers Care Development Professional Name Role Phone Unavailable Primary Care Provider Unavailabl e Encounter Details Date Type Department Care Team (Late st Contact Info) Description 06/08/2020 Transcribed Document [facility] [place] Medicine [facility] [address] ProviderDeclan MD [address] [place] [address] Social History Tobacco Use Types [...] - Declan ProviderMD - 06/08/2020 1:44 AM GROUNDS WORKER ED Assessment Entered On: 06/08/2020 2:09 EST Performed On: 06/08/2020 1:57 EST by Aleta Smith RN ED Quick Look Assessment Level of Consciousness : Alert, Awake Affect/Behavior : Appropriate, Calm Orientation : Oriented x 4 Skin Temperature : Warm Skin Description : Normal for ethnicity Aleta Smith RN - 06/08/2020 1:57 EST ED General-Functional Assess Preferred Communication Mode : Verbal Communication Barrier : None Primary Language : Equ[place]inean Any Spiritual/Cultural Needs or Requests : No Currently in Unsafe Situation : No Aleta Smith RN - 06/08/2020 1:57 EST Social Habits Smoking Status : 10 or more cigarettes (1/2 pack or more)/day in last 30 days Smokeless Tobacco Status : Never Desires Tobacco Cessation Medication : No Reason for No Tobacco Cessation Medication : ED/procedural patient only Desires Tobacco Cessation Calc : 1 Aleta Smith RN - 06/08/2020 1:57 EST Social History (As Of: 06/08/2020 02:09:26 EST) Tobacco: Smoking Status Current every day smoker. Packs/Tins Daily: 1. (Last Updated: 01/10/2017 15:11:25 EDT by HEYDI GRAY RN) EENT Assessment EENT Assessment WDL : Aleta Lr RN - 06/08/2020 1:57 EST Cardiovascular ASMT, ED Cardiovascular Assessment WDL : Aleta Lr RN - 06/08/2020 1:57 EST Respiratory Respiratory Assessment WDL : Aleta Lr RN - 06/08/2020 1:57 EST Gastrointestinal ED Gastrointestinal Assessment WDL : Aleta Lr RN - 06/08/2020 1:57 EST Genitourinary Assessment, ED Genitourinary Assessment WDL : Aleta Lr RN - 06/08/2020 1:57 EST Musculoskeletal Musculoskeletal Assessment WDL : Aleta Lr RN - 06/08/2020 1:57 EST Integumentary Assessment Integumentary Assessment WDL : Aleta Lr RN - 06/08/2020 1:57 EST documented in this encounter Plan of Treatment Not on file documented as of this encounter Visit Diagnoses Not on filedocumented in this encounter
--- OUTSIDE RECORDS SUMMARY | 2024-12-24 10:05 | XMS_ITS | Encounter Summary ---
Author Organization [employer] ([place], [place], [place], [place]) Address [address] [place] [address] Care Team Providers Care Auth Specialist Name Role Phone Unavailable Primary Care Provider Unavailabl e Encounter Details Date Type Department Care Team (Late st Contact Info) Description 06/08/2020 Transcribed Document [facility] [place] [facility] [place] [address] ProviderDeclan MD [address] [place] [address] Social History Tobacco Use Types [...] - Declan ProviderMD - 06/08/2020 1:44 AM REGIONAL OWNER OPERATOR TRUCK DRIVER ED Triage Entered On: 06/08/2020 2:05 EST Performed On: 06/08/2020 1:57 EST by Aleta Smith RN ED Triage Across the Room Chief Complaint : pt had witness seizure tonight lasting 2-3 min - convulsing and confused afterwards per pt. pt states had a seizure two weeks ago after taking a xanax but has not had any recreational drugs today. Triage Date/Time : 06/08/2020 1:57 EST Aleta Smith RN - 06/08/2020 1:57 EST DCP GENERIC CODE Tracking Acuity : 3 - Urgent Tracking Group : [facility] ED Aleta Mohan RN - 06/08/2020 1:57 EST Mode of Arrival : Ambulatory Transported to ED by : Walk in To Room Via : Ambulate Accompanied By : Friend ED Vital Signs : Document Height & Weight : Document ED Allergies : Document ED Reason for Visit : Document Tetanus Immunization : Unknown Aleta Smith RN - 06/08/2020 1:57 EST Infectious Disease History Has the patient ever been tested for COVID-19? : Yes, Patient stated results Negative Date of COVID-19 test known? : No Does patient have symptoms of COVID-19? : No COVID19 Screening : No Experiencing Infectious Disease Symptoms : No symptoms Physical contact outside [place] in the last 30 days : No Infectious Disease History : None Tuberculosis Symptoms : None Aleta Smith RN - 06/08/2020 1:57 EST Vital Signs ED Temperature Source : Oral Temperature Mode : Fahrenheit Temperature, Fahrenheit : 98.6 Deg F Clinical Temperature, C : 37 Deg C Oxygen Therapy Mode : Room air Peripheral Pulse Rate : 95 bpm Respiratory Rate : 16 Breaths/Min Systolic Blood Pressure : 149 mmHg (HI) Diastolic Blood Pressure : 71 mmHg Oxygen Saturation : 98 % Aleta Smith RN - 06/08/2020 1:57 EST Allergy (As Of: 06/08/2020 02:05:58 EST) Allergies (Active) No Known Allergies Estimated Onset Date: Unspecified ; Created By: ALVAREZ_SYSTEMJOSE LUIS; Reaction Status: Active ; Category: Drug ; Substance: No Known Allergies ; Type: Allergy ; Updated By: JOSE LUIS CALDERON; Reviewed Date: 01/10/2017 14:59 EDT Diagnosis Control ED (As Of: 06/08/2020 02:05:58 EST) Problems(Active) No Chronic Problems (Cerner :NKP ) Name of Problem: No Chronic Problems ; Recorder: LILI VILLALOBOS RN; Code: NKP ; Last Updated: 01/08/2017 20:16 EDT ; Life Cycle Date: 01/08/2017 ; Life Cycle Status: Active ; Vocabulary: Radha Diagnoses(Active) Seizure Date: 06/08/2020 ; Diagnosis Type: Reason For Visit ; Confirmation: Complaint of ; Clinical Dx: Seizure ; Classification: Medical ; Clinical Service: Emergency medicine ; Code: PNED ; Probability: 0 ; Diagnosis Code: [id number] ED Height and Weight Height Source : Estimated Height Entry Format : [place] Height, Feet : 5 ft(Converted to: 152 cm, 60 Inch) Height, Inches : 3 Inch(Converted to: 0 ft 3 Inch, 7.62 cm) Clinical Height : 160.02 cm Weight Source, ED : Critical estimated dosing weight Weight Entry Format : [place] Weight, Pounds : 115 lb Clinical Dosing Weight : 52.27 kg Body Surface Area (BSA) : 1.53 m2 Body Mass Index : 20.4 kg/m2 [place] Body Weight (IBW) : 52.02 kg Aleta Smith RN - 06/08/2020 1:57 EST documented in this encounter Plan of Treatment Not on file documented as of this encounter Visit Diagnoses Not on filedocumented in this encounter
--- OUTSIDE RECORDS SUMMARY | 2024-12-24 10:05 | XMS_ITS | Clinical Summary ---
[facility] Address [address] [place] [address] Care Team Providers Care Naval Inspector Name Role Phone Provider, No Known Primary Care Provider Unavail able Allergies No known active allergies Medications Vit-Fe Fumarate-FA ( Low Iron) 27-0.8 MG tablet One tablet daily 30 each 5 1 Active valACYclovir (VALTREX) 1000 MG tablet Take 1 tablet by mouth Daily. 90 tablet 3 3 Active Levonorgestrel (MIRENA) 20 MCG/DAY intrauterine device IUD 1 each by Intrauterine route Every 8 (Eight) Years. 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 , antepartum 12/22/2020 Resolved Problems Problem Noted Date Diagnosed Date Resolved Date state 11/07/2022 12/05/2022 Normal labor 10/22/2022 12/05/2022 (normal spontaneous vaginal delivery) 10/22/2022 11/07/2022 Short interval between pregn ancies affecting , antepartum 06/07/2022 12/05/2022 Late care affecting 06/07/2022 12/05/2022 Supervision of high risk pre gnancy, antepartum 05/16/2022 12/05/2022 38 weeks gestation of 05/16/2022 12/05/2022 exam 07/30/2021 05/16/2022 Family planning 07/30/2021 08/02/2022 Normal labor 06/18/2021 05/16/2022 Term 06/18/2021 05/16/2022 39 weeks gestation of 11/24/2020 05/16/2022 Family planning 01/14/2020 01/20/2021 40 weeks gestation of 11/04/2019 01/14/2020 38 weeks gestation of 04/15/2019 01/14/2020 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 , antepartum 04/15/2019 01/14/20 control counseling 09/29/201507/2019 Encounter for Nexplanon removal 09/29/2015 05/06/2019 Immunizations Immunization Administration Dates Next Due Rho (D) Immune Globulin 10/22/2022,08/02,06/19/2021,04/04/2021,11/05/19,08/11/2019 Family History Medical History Relation Name Comments No Known Problems Daughter 1 No Known Problems Daughter 2 Migraines Father No Known Problems Half-Brother No Known Problems Half-Sister 1 No Known Problems Half-Sister 2 Hypertension Maternal Grandfather Hypertension Maternal Grandmother No Known Problems Mother Kidney disease Other father's side of family Diabetes Paternal Grandfather Hypertension Paternal Grandmother Kidney disease Paternal Grandmother Migraines Paternal Grandmother Relation Name Status Comments Daughter 1 Alive Daughter 2 Alive Father Alive Half-Brother Alive Half-Sister 1 Alive Half-Sister 2 Alive Maternal Grandfather Alive Maternal Grandmother Alive Mother Alive Other father's side of family Paternal Grandfather Alive Paternal Grandmother Alive Social History Tobacco Use Types Packs/Day Years Used Date Smoking Tobacco: Former Cigarettes Q uit: 03/2022 Smokeless Tobacco: Never Tobacco Cessation:Counseling Given: Not Answered Alcohol Use Standard Drinks/Week Comments Not Currently [...] things needed for daily living? 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 Not on file Not on file Last Filed Vital Signs Vital Sign Reading Time Taken Comments Blood Pressure 102/66 12/05/2022 3:40 PM EDT Pulse 76 10/24/2022 7:00 AM EDT Temperature 36.7 C (98.1 F) 10/24/2022 7:00 AM EDT Respiratory Rate 18 10/24/2022 7:00 AM EDT Oxygen Saturation 100% 10/22/2022 9:15 AM EDT Inhaled Oxygen Concentration - - Weight 59.4 kg (131 lb) 01/16/2023 10:26 AM EDT Height 157.5 cm (5' 2 ) 01/16/2023 10:26 AM EDT Body Mass Index 23.96 01/16/2023 10:26 AM EDT Plan of Treatment Health Maintenance Due Date Last Done Comments Annual Gynecologic Pelvic and Breast Exam 1998 HPV VACCINES (1 - 3-dose series) 2013 ANNUAL PHYSICAL 07/10/2016 TDAP/TD VACCINES (1 - Tdap) 2017 INFLUENZA VACCINE 10/31/2024 01/13/2020, 03/05/2012 CHLAMYDIA SCREENING Discontinued 06/07/2022, 05/16/2022, 07/19/2017, Additional history exists HEPATITIS C SCREENING Completed 07/05/2022 , 11/09/2020, 04/15/2019, Additional history exists Pneumococcal Vaccine 0-49 Aged Out No longer eligible based on patient's age to complete this topic Procedures Procedure Name Priority Date/Time Associated Diagnosis Comments HEPATITIS C ANTIBODY Routine 07/05/2022 12:09 PM EDT 16 weeks gestation of YADIRA ALBICANS, GARDNERELLA VAGINALIS, TRICHOMONAS VAGINALIS,DNA Routine 06/07/2022 20 weeks gestation of Chlamydial cervicitis from Last 3 Months or Most Recently Relevant to Health Maintenance Results * Hepatitis C Antibody (07/05/2022 12:09 PM EDT) Hepatitis C Ab Non-Reacti ve Non-Reacti ve 07/05/2022 2:44 PM EDT [facility] Blood Venipuncture / Unknown 07/05/2022 12:09 PM EDT 07/05/2022 12:09 PM EDT Narrative [facility] - 07/05/2022 2:44 PM EDT Results may be falsely decreased if patient taking Biotin. Jac Ochoa MD LAB BLOOD ORDERABLES Final Result [facility]
[address] [place] [address], * Gardnerella vaginalis, Trichomonas vaginalis, Yadira albicans, DNA - Swab, Vagina (06/07/2022) Swab Vaginal structure / Unknown Jac Ochoa MD MICROBIOLOGY - GENERAL ORDAntelmo [facility] Final Result [facility] [address] [place] [address] from Last 3 Months or Most Recently Relevant to Health Maintenance Advance Directives * CPR (Attempt to Resuscitate) (Latest Code Status on File) Date Activated Date Inactivated Comments 10/22/2022 1:52 PM 10/24/2022 4:19 PM Question Answer Comments Code Status (Patient has no pulse and is not breathing): CPR (Attempt to Resuscitate) Medical Interventions (Patie nt has pulse or is breathing): Full Release to patient: Routine Release * CPR (Attempt to Resuscitate) Date Activated Date Inactivated Comments 10/22/2022 3:39 AM 10/22/2022 1:52 PM Question Answer Comments Code Status (Patient has no pulse and is not breathing): CPR (Attempt to Resuscitate) Medical Interventions (Patie nt has pulse or is breathing): Full Release to patient: Routine Release * CPR (Attempt to Resuscitate) Date Activated Date Inactivated Comments 06/18/2021 5:14 PM 06/20/2021 5:09 PM Question Answer Comments Code Status (Patient has no pulse and is not breathing): CPR (Attempt to Resuscitate) Medical Interventions (Patie nt has pulse or is breathing): Full * CPR (Attempt to Resuscitate) Date Activated Date Inactivated Comments 06/18/2021 8:50 AM 06/18/2021 5:14 PM Question Answer Comments Code Status (Patient has no pulse and is not breathing): CPR (Attempt to Resuscitate) Medical Interventions (Patie nt has pulse or is breathing): Full Support Level Of Support Discussed With: Patient * CPR (Attempt to Resuscitate) Date Activated Date Inactivated Comments 11/04/2019 7:07 PM 11/06/2019 3:44 PM Question Answer Comments Code Status (Patient has no pulse and is not breathing): CPR (Attempt to Resuscitate) Medical Interventions (Patie nt has pulse or is breathing): Full Care Teams Naval Inspector Relationship Specialty Start Date End Date Provider, [place] [address] PCP - General 03/18/19
== END 2024-12-23 23:59 | disposition home or self-care (01) ==
LOC: LAB.DROPOF 12-24 09:56
PROVIDERS: PCP Nurse Practitioner; Visit Provider Nurse Practitioner
DX: Z32.01 Encounter for pregnancy test, result positive (principal); N92.6 Irregular menstruation, unspecified
CPT/HCPCS: 84144; 84702; 84703

== ENCOUNTER 2025-01-15 09:57 | Outpatient (CLI) | payer OTHER, SELFPAY ==
--- OUTSIDE RECORDS SUMMARY | 2020-11-09 08:30 | XMS_ITS | Encounter Summary ---
Author Organization [facility] Address [address] [place] [address] Care Team Providers Care Data Warehouse Consultant Name Role Phone Provider, No Known Primary Care Provider Unavail able Reason for Referral * Diagnostic Imaging (Routine) - Closed Specialty Diagnoses / Procedures Referred By Contac t Referred To Contact Radiology Diagnoses Date of last menstrual period (LMP) unknown Procedures US Ob Transvaginal Elmira Hull MD [address] [place] [address] Phone: tel: fax: [facility] [address] [address] Phone: tel: fax: Referral ID Status Reason Start Date Expiration Date Visits Re quested Visits Authorized [id number] Closed 11/01/2020 11/01/2021 1 1 Reason for Visit * Diagnostic Imaging (Routine) - Closed Specialty Diagnoses / Procedures Referred By Contac t Referred To Contact Radiology Diagnoses Date of last menstrual period (LMP) unknown Procedures US Ob Transvaginal Elmira Hull MD [address] [address] Phone: tel: fax: [facility] [address] [address] Phone: tel: fax: Referral ID Status Reason Start Date Expiration Date Visits Re quested Visits Authorized [id number] Closed 11/01/2020 11/01/2021 1 1 Encounter Details Date Type Department Care Team (Latest Contact Info) Description 11/09/2020 8:30 AM EDT Hospital Encounter [facility] [address] [place] [address] Date of last menstrual period (LMP) unknown [...] money to buy more. Never true 10/23/19 Within the past 12 months, t he [...] things needed for daily living? No 10/22/2022 [place] Depression Scale Answer Date Recorded [place] Depression Scale Total 4 11/07/2022 The thought of harming myself has occurred to me . 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 Never 10/22/2022 3:37 AM EDT Geno Mariscal RN Q2: How many drinks containing alcohol do you have on a typical day when you are drinking? Patient does not drink 10/22/2022 3:37 AM EDT Geno Mariscal RN Q3: How often do you have [...] 10:28 AM EDT PAT NAME: HALEY OJEDA [facility] REC#: [id number] DA: [id number] PAT GEND: F PAT TYPE: O EXAM ARON: [id number] REF PHYS ELMIRA HULL Indication ======== Dating [...] cardiac activity Recommendation Follow-up as clinically indicated. Channeler: Minna Avalos RN, RDMS Physician: Elmira Hull MD Electronically signed by: Elmira Hull MD at: 10:28 Procedure Note Elmira Hull MD - 11/09/2020 PAT NAME: HALEY OJEDA [facility] REC#: [id number] DA: [id number] PAT GEND: F PAT TYPE: O EXAM ARON: [id number] REF PHYS ELMIRA HULL Indication ======== Dating [...] GA8 w + 3 d Assigned JOHN:06/18/2021 [email or web address] d Assessment Gestational sac:visualized Yolk sac:visualized Embryo:visualized CRL19.0 mm 8w 3d 77% Hadlock Cardiac activity:present [id number] bpm Placenta:Too early to evaluate Maternal Structures Uterus / Cervix Uterus:Visualized Cervix:Visualized Ovaries / Tubes / Adnexa Rt ovary:Visualized Lt ovary:Visualized Impression ========= Single viable intrauterine with normal cardiac activity Recommendation Follow-up as clinically indicated. Channeler: Minna Avalos RN, RDMS Physician: Elmira Hull [...] documented as of this encounter Care Teams Data Warehouse Consultant Relationship Specialty Start Date End Date Provider, [place] [address] PCP - General 03/18/19 documented as of this encounter
--- OUTSIDE RECORDS SUMMARY | 2025-01-15 10:14 | XMS_ITS | Encounter Summary ---
Author Organization [employer] ([place], [place], [place], [place]) Address [address] [place] [address] Care Team Providers Care Linen Room Custodian Name Role Phone Unavailable Primary Care Provider Unavailabl e Encounter Details Date Type Department Care Team (Late st Contact Info) Description 06/08/2020 Transcribed Document [facility] [place] Family [place] [address] ProviderDeclan MD [address] [place] [address] Social History Tobacco Use Types [...] - Declan ProviderMD - 06/08/2020 3:22 AM CLEANER FURNITURE ED Discharge Entered On: 06/08/2020 3:23 EST [...] 06/08/2020 3:22 EST Electronically signed by Brandy, [facility] Conversion Lumber Chain Offbearer Cerner at 07/17/2022 9:50 AM CDT documented in this encounter Plan of Treatment Not on file documented as of this encounter Visit Diagnoses Not on filedocumented in this encounter
--- OUTSIDE RECORDS SUMMARY | 2025-01-15 10:14 | XMS_ITS | Clinical Summary ---
Author Organization [facility] Address [address] [place] [address] Care Team Providers Care Hydrologist Name Role Phone Unavailable Primary Care Provider [...] Date Last Done Comments [facility]-Depression Screening 1998 [facility]-Infant/Child/Adol SDOH Screenings 1998 [facility]-Varicella Vaccines (1 of 2 - 13+ 2-dose series) 2011 HPV Vaccines (1 - 3-dose series) 2013 [facility]- SDOH Screenings 02/09/2016 [facility]-Adult SDOH Screenings 02/09/2016 [facility]-DTaP,Tdap,and Td Vaccine s (1 - Tdap) 2017 [facility]-Hepatitis B Vaccines (1 of 3 - 19+ 3-dose series) 2017 [facility]-Pap Smear 2019 [id number] Vaccine (1 - 20 24-25 season) 2024 [...]
--- OUTSIDE RECORDS SUMMARY | 2025-01-15 10:14 | XMS_ITS | Encounter Summary ---
Author Organization [employer] ([place], [place], [place], [place]) Address [address] [place] [address] Care Team Providers Care Educational Advisor Name Role Phone Unavailable Primary Care Provider Unavailabl e Encounter Details Date Type Department Care Team (Late st Contact Info) Description 06/08/2020 Transcribed Document [facility] [place] Family Medicine [facility] [place] [address] ProviderDeclan MD [address] [place] [address] Social History Tobacco Use Types [...] Declan Vega MD - 06/08/2020 2:11 AM COUNTRY SINGER Patient: HALEY OJEDA Age: 20 years Sex: [...] EST Height Source Estimated Height Entry Format [place] Height/Length, SOUTH AFR[place] (ft) 5 ft Height/Length [place] 3 Inch CLINICALHEIGHT 160.02 cm [place] Body Weight 52.02 kg Weight Source, ED Critical estimated dosing weight Weight Entry Format [place] Weight Swedish lb 115 lb CLINICALWEIGHT 52.27 kg Body Surface Area (BSA) 1.53 m2 Body Mass Index 20.4 kg/m2 . Oxygen Saturation 06/08/2020 1:57 EST Oxygen Saturation 98 % . General: Alert, no acute distress. [place] coma scale: Per nurse's notes. Neurological: Alert [...] Yellow Urine Appearance Slightly Cloudy Urine Specific [place] >=1.030 Urine pH Dipstick 6.0 Urine Leukocyte [...] Discharge, Emergency medicine, Medical Plan Prescriptions: Prescription Warehouse Order Selector Pharmacy: Bactrim DS 800 mg-160 mg oral [...]
--- OUTSIDE RECORDS SUMMARY | 2025-01-15 10:14 | XMS_ITS | Encounter Summary ---
Author Organization [employer] ([place], [place], [place], [place]) Address [address] [place] [address] Care Team Providers Care Threat Analyst Name Role Phone Unavailable Primary Care Provider Unavailabl e Encounter Details Date Type Department Care Team (Late st Contact Info) Description 06/08/2020 Transcribed Document [facility] [place] [facility] [place] [address] ProviderDeclan MD [address] [place] [address] Social History Tobacco Use Types [...] - Declan ProviderMD - 06/08/2020 1:44 AM BOOM CRANE OPERATOR ED Triage Entered On: 06/08/2020 2:05 EST [...] : 3 - Urgent Tracking Group : [facility] ED Aleta Mohan RN - 06/08/2020 1:57 [...] PNED ; Probability: 0 ; Diagnosis Code: [id number] ED Height and Weight Height Source : Estimated Height Entry Format : [place] Height, Feet : 5 ft(Converted to: 152 cm, 60 Inch) Height, Inches : 3 Inch(Converted to: 0 ft 3 Inch, 7.62 cm) Clinical Height : 160.02 cm Weight Source, ED : Critical estimated dosing weight Weight Entry Format : [place] Weight, Pounds : 115 lb Clinical Dosing Weight : 52.27 kg Body Surface Area (BSA) : 1.53 m2 Body Mass Index : 20.4 kg/m2 [place] Body Weight (IBW) : 52.02 kg Aleta Smith RN - 06/08/2020 1:57 EST documented in this encounter Plan of Treatment Not on file documented as of this encounter Visit Diagnoses Not on filedocumented in this encounter
--- OUTSIDE RECORDS SUMMARY | 2025-01-15 10:14 | XMS_ITS | Clinical Summary ---
[facility] Organization [facility] Address [address] [place] [address] Care Team Providers Care Environmental Field Technician Name Role Phone Provider, No Known Primary [...] things needed for daily living? 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 aJc Ochoa MD LAB BLOOD ORDERABLES Final Result [facility]
[address] [place] [address], [place] [phone] * Gardnerella vaginalis, Trichomonas vaginalis, Yadira albicans, DNA - Swab, Vagina (06/07/2022) Swab Vaginal structure / Unknown Jac Ochoa MD MICROBIOLOGY - GENERAL ORDE [facility] Final Result [facility] [address] [place] [address] from Last 3 Months or Most Recently [...] pulse or is breathing): Full Care Teams Environmental Field Technician Relationship Specialty Start Date End Date Provider, [place] [address] PCP - General 03/18/19
--- OUTSIDE RECORDS SUMMARY | 2025-01-15 10:14 | XMS_ITS | Encounter Summary ---
Author Organization [employer] ([place], [place], [place], [place]) Address [address] [place] [address] Care Team Providers Care Director Of Security Name Role Phone Unavailable Primary Care Provider Unavailabl e Encounter Details Date Type Department Care Team (Late st Contact Info) Description 06/08/2020 Transcribed Document [facility] [place] [facility] [place] [address] ProviderDeclan MD [address] [place] [address] Social History Tobacco Use Types [...] - Declan ProviderMD - 06/08/2020 1:44 AM HOSPITAL FOOD SERVICE WORKER ED Assessment Entered On: 06/08/2020 2:09 [...] Communication Barrier : None Primary Language : Samoan Any Spiritual/Cultural Needs or Requests : No [...]
--- OUTSIDE RECORDS SUMMARY | 2025-01-15 10:14 | XMS_ITS | Clinical Summary ---
Author Organization [employer] ([place], [place], [place], [place]) Address [address] [place] [address] Care Team Providers Care Food Production Machine Operator Name Role Phone Unavailable Primary Care Provider [...]
--- OUTSIDE RECORDS SUMMARY | 2025-01-15 10:14 | XMS_ITS | Encounter Summary ---
Author Organization [employer] ([place], [place], [place], [place]) Address [address] [place] [address] Care Team Providers Care Typo Machine Operator Name Role Phone Unavailable Primary Care Provider Unavailabl e Encounter Details Date Type Department Care Team (Late st Contact Info) Description 06/08/2020 Transcribed Document [facility] [place] Medicine [facility] [place] [address] ProviderDeclan MD [address] [place] [address] Social History Tobacco Use Types [...] - Declan ProviderMD - 06/08/2020 3:02 AM MODERN GREEK STUDIES PROFESSOR Electronically signed by Brandy [facility] Conversion Physical Therapy Resident Radha at 07/17/2022 9:34 AM CDT documented in this encounter Plan of Treatment Not on file documented as of this encounter Visit Diagnoses Not on filedocumented in this encounter
--- OUTSIDE RECORDS SUMMARY | 2025-01-15 10:14 | XMS_ITS | Encounter Summary ---
Author Organization [employer] ([place], [place], [place], [place]) Address [address] [place] [address] Care Team Providers Care Pbx Operator Name Role Phone Unavailable Primary Care Provider Unavailabl e Encounter Details Date Type Department Care Team (Late st Contact Info) Description 06/08/2020 Transcribed Document [facility] [place] Medicine [facility] [place] [address] ProviderDeclan MD [address] [place] [address] Social History Tobacco Use Types [...] Declan Vega MD - 06/08/2020 3:04 AM AWNING MAKER AND INSTALLER [facility] [address] [place] [address] HALEY GARCIA :2000 Visit Time:06/08/2020 Your Visit [...] ) Urine Bilirubin Dipstick: Negative Urine Specific [place]: >=1.030 -- Normal range between ( 1.005 [...] this condition includes: ??? Antibiotic medicine. ??? Iykn-ysr-scxjozo medicines to treat discomfort. ??? Drinking enough [...] these instructions at home: Medicines ??? Take equb-pbn-yqowihe and prescription medicines only as told by [...] 12/27/2005 Document Revised: 03/06/2019 Document Reviewed: 09/26/2018 ElseVputi Patient Education ?? 2020 [employer]. Seizure, Adult A seizure is a [...] these instructions at home: Medicines ??? Take qlnq-xhf-ahyygib and prescription medicines only as told by [...] medicines are used to treat seizures. Take body-raa-rxkezvg and prescription medicines only as told by your health care provider. This information is not intended to replace advice given to you by your health care provider. Make sure you discuss any questions you have with your health care provider. Document Released: 03/16/2001 Document Revised: 06/06/2019 Document Reviewed: 06/06/2019 [employer]or Patient Education ?? 2020 Arrively. Emergency Awareness and Preventative Care STROKE is [...] Assistance with quitting is available by contacting 3-466-PWDRNOW. This is a free resource providing counseling, support, and referral. Or you may contact your personal physician. [employer] Suicide Prevention Lifeline: The National Suicide Prevention [...] was given the opportunity to ask questions. Patient/Machine Pecan Picker Name: Patient/Machine Pecan Picker Signature: Relationship to Patient: Clinician/Hospital Machine Pecan Picker Signature: Please Provide a Telephone Number Where You Can Be Reached: Is it Permissible To Leave a Message? Date: documented in this encounter Plan of Treatment Not on file documented as of this encounter Visit Diagnoses Not on filedocumented in this encounter
--- OUTSIDE RECORDS SUMMARY | 2025-01-15 10:14 | XMS_ITS | Referral Summary ---
Author Organization [employer] ([place], [place], [place], [place]) Address [address] [place] [address] Care Team Providers Care Panama Hat Hydraulic Press Operator Name Role Phone Unavailable Primary Care [...]
--- OUTSIDE RECORDS SUMMARY | 2025-01-15 10:14 | XMS_ITS | Encounter Summary ---
Author Organization [employer] ([place], [place], [place], [place]) Address [address] [place] [address] Care Team Providers Care Assembler Small Products Name Role Phone Unavailable Primary Care Provider Unavailabl e Encounter Details Date Type Department Care Team (Late st Contact Info) Description 06/11/2020 Transcribed Document [facility] [place] [facility] Medicine [facility] [place] [address] ProviderDeclan MD [address] [place] [address] Social History Tobacco Use Types [...] - Historical ProviderMD - 06/11/2020 2:47 PM CAFE SITE ATTENDANT Urine Culture Collected: 06/08/2020 02:07 Entaer Complete Body site: Specimen Type: U CleanCatch 06/11/2020 09:45 06/11/2020 14:47 (MEL LUNA PA) Reviewed by Provider, No further action required documented in this encounter Plan of Treatment Not on file documented as of this encounter Visit Diagnoses Not on filedocumented in this encounter
--- OUTSIDE RECORDS SUMMARY | 2025-01-15 10:14 | XMS_ITS | Encounter Summary ---
Author Organization [employer] ([place], [place], [place], [place]) Address [address] [place] [address] Care Team Providers Care Retirement Sales Consultant Name Role Phone Unavailable Primary Care Provider Unavailabl e Encounter Details Date Type Department Care Team (Late st Contact Info) Description 06/08/2020 Transcribed Document [facility] [place] [facility] [place] [address] ProviderDeclan MD [address] [place], [place] [id number] Social History Tobacco Use Types Packs/Day Years [...] - Declan ProviderMD - 06/08/2020 1:44 AM TELEGRAPHIC TYPEWRITER REPAIRER Broset Violence Assessment Entered On: 06/08/2020 2:09 [...]
--- OUTSIDE RECORDS SUMMARY | 2025-01-15 10:14 | XMS_ITS | Encounter Summary ---
Author Organization [employer] ([place], [place], [place], [place]) Address [address] [place] [address] Care Team Providers Care Manager Career Name Role Phone Unavailable Primary Care Provider Unavailabl e Encounter Details Date Type Department Care Team (Late st Contact Info) Description 06/08/2020 Transcribed Document [facility] [place] [address] [place] [address] ProviderDeclan MD [address] [place], [place] [id number] Social History Tobacco Use Types Packs/Day Years [...] - Declan ProviderMD - 06/08/2020 1:[address] CREW MEMBER [place] Suicide Severity Rating Scale (C-SSRS) Entered On: 06/08/2020 2:09 EST Performed On: 06/08/2020 1:57 EST by Aleta Smith RN [place] Suicide Severity Rating Scale (C-SSRS) CSSRS Past Month Wish to be : No CSSRS Past Month Suicidal Thoughts : No CSSRS Lifetime Suicide Behavior : No Suicide Severity Rating Score : 0 Suicide Severity Rating : No Additional Care Required at this time Aleta Smith RN - 06/08/2020 1:57 EST Electronically signed by Brandy [facility] Conversion Product Builder Cerner at 07/17/2022 9:49 AM CDT documented in this encounter Plan of Treatment Not on file documented as of this encounter Visit Diagnoses Not on filedocumented in this encounter
[2025-01-15 10:26] LABS: Hematocrit 37.4 % (37.0-47.0); Hemoglobin 12.6 g/dL (12.2-16.2); Immature Granulocytes % 0.4 %; Mean Corpuscular HGB Conc 33.7 g/dL (31.8-35.4); Mean Corpuscular Hemoglobin 29.6 pg (27.0-31.2); Mean Corpuscular Volume 88.0 fl (81-99); Nucleated Red Blood Cells % 0 %; Platelet Count 232 K/mm3 (142-424); Red Blood Count 4.25 M/mm3 (4.20-5.40); Red Cell Distribution Width-SD 39.8 fL; White Blood Count 10.2 K/mm3 (4.8-10.8)
[2025-01-15 11:51] LABS: Hepatitis C Ab Qual. W/ RFX NEGATIVE (Negative)
[2025-01-16 07:16] LABS: Hepatitis B Surface Antigen Negative (Negative)
[2025-01-16 07:56] LABS: RPR W/RFX Titers Nonreactive (Nonreactive)
[2025-01-16 08:22] LABS: Rubella Antibodies, IgG 1.40 index (Immune >0.99)
== END 2025-01-15 23:59 | disposition home or self-care (01) ==
PROVIDERS: Visit Provider Obstetrics & Gynecology
DX: Z34.81 Encounter for supervision of other normal pregnancy, first trimester (principal); Z3A.00 Weeks of gestation of pregnancy not specified
CPT/HCPCS: 36415; 85025; 86592; 86762; 86787; 86803; 86850; 87086; 87340; 87389

== ENCOUNTER 2025-01-20 14:48 | Outpatient (CLI) | payer OTHER, SELFPAY ==
--- OUTSIDE RECORDS SUMMARY | 2025-01-20 14:56 | XMS_ITS | Clinical Summary ---
Author Organization [employer] [facility] Address [address] [place] [address] Phone Care Team Providers Care Senior Counsel Commercial Name Role Phone Ronen RAENClaudia Primary Care Physician [phone] Conditions or Problems Problem Name Problem Code Onset Date Status Entry Date Provider Comment Standard Description Annotate Body mass index (BMI) 21.0-21.9; adult Z68.21 (ICD-10-CM ) 11/05 Active 11/07 Amisha Jonas APRN Body mass index [BMI] 21.0-21.9, adult Body mass index (BMI) 21.0-21.9; adult Z68.21 (ICD-10-CM ) 11/05 Correction 11/06 Amisha Kinsjulia DISTANCE EDUCATION DIRECTOR Body mass index [BMI] 21.0-21.9, adult Bacterial vaginosis 955133932 (SNOMED CT) 11/05 Active 11/07 Amisha Sumi DISTANCE EDUCATION DIRECTOR Bacterial vaginosis Body mass index (BMI) 21.0-21.9; adult Z68.21 (ICD-10-CM ) 11/05 Removed 11/06 Amisha Kinsjulia DISTANCE EDUCATION DIRECTOR Body mass index [BMI] 21.0-21.9, adult Body mass index (BMI) 22.0-22.9; adult Z68.22 (ICD-10-CM ) 08/14 Correction 08/14 Amisha Kinsjulia DISTANCE EDUCATION DIRECTOR Body mass index [BMI] 22.0-22.9, adult Vaginal discharge 440705199 (SNOMED CT) 11/05 Active 11/06 Amisha Sumi DISTANCE EDUCATION DIRECTOR Vaginal discharge Burning on urination 11851250 (SNOMED CT) 11/05 Active 11/06 Amisha Jonas APRN Scalding pain on urination Yeast infection 5424191 (SNOMED CT) 11/05 Active 11/05 Amisha Jonas DISTANCE EDUCATION DIRECTOR Mycosis Body mass index (BMI) 22.0-22.9; adult Z68.22 (ICD-10-CM ) 08/14 Removed 08/14 Sebastian Castañeda MD Body mass index [BMI] 22.0-22.9, adult Body mass index (BMI) 22.0-22.9; adult Z68.22 (ICD-10-CM ) 04/07 Correction 04/07 Sebastian Castañeda MD Body mass index [BMI] 22.0-22.9, adult Tobacco User 549217678 (SNOMED CT) 08/14 Active 08/14 Sebastian Castañeda MD Tobacco user Otitis Externa 1874670 (SNOMED CT) 08/14 Active 08/14 Sebastian Castañeda MD Otitis externa Body mass index (BMI) 22.0-22.9; adult Z68.22 (ICD-10-CM ) 04/07 Removed 04/07 Claudia Hardwick APRN Body mass index [BMI] 22.0-22.9, adult Counseling for nutrition Z71.3 (ICD-10-CM ) 04/07 Inactive 04/07 Claudia Hardwick APRN Dietary counseling and surveillance Physical exam 1435025 (SNOMED CT) 04/07 Active 04/07 Claudia Hardwick APRN Physical examination Hx of genital herpes 500395954 (SNOMED CT) 04/07 Active 04/07 Claudia Hardwick APRN History of sexually transmitted disease Establish care or get acquainted visit 843199237 (SNOMED CT) 04/07 Active 04/07 Claudia Hardwick APRN Procedure carried out on subject Medications Medication Instructions Start Date Stop Date Generic Name NDC Provider METRONIDAZOLE 500 MG TABS Take 1 tablet by mouth twice a day FOR 7 DAYS. DO NOT DRINK ALCOHOL WHILE TAKING THIS MEDICATION TAKE WITH FOOD metronidazole [id number] Amisha Jonas APRN OFLOXACIN 0.3 % SOLN Instill 5 drop into affected ear twice a day to the affected ear for 7 days. ofloxacin [id number] Sebastian Castañeda MD Medications Administered No information [...] c blood pressure <80 mm Hg [facility] 40537 T2 BV Yeast Trich Culture (Affirm) 11/05 [facility] 65836 T1 G.C. Chlamydia 4004F Patient screened for tobacco use and received tobacco cessation intervention [facility]-[id number] Medication Reconciliation [facility]-[id number] Never smoker [facility]-[id number] Smoking cessation education [facility]-[id number] Medication Reconciliation 4004F Patient screened for tobacco use and received tobacco cessation intervention CPT-77278 ANTI-HAV CPT-3074F Most recent systolic blood pressure <130 mm Hg CPT-3078F Most recent diastoli c blood pressure <80 mm Hg [facility]-[id number] Medication Reconciliation [facility] 05646 RC Quantiferon Vital Signs Date Name Value [...]
--- OUTSIDE RECORDS SUMMARY | 2025-01-20 14:57 | XMS_ITS | Encounter Summary ---
Author Organization [employer] ([place], [place], [place], [place]) Address [address] [place] [address] Care Team Providers Care Technical Writer Name Role Phone Unavailable Primary Care Provider Unavailabl e Encounter Details Date Type Department Care Team (Late st Contact Info) Description 06/08/2020 Transcribed Document [facility] [place] [facility] [place] [address] ProviderDeclan MD [address] [place] [address] Social History Tobacco Use Types [...] Declan Vega MD - 06/08/2020 2:11 AM CRITICAL CARE PARAMEDIC Patient: HALEY OJEDA Age: 20 years Sex: [...] EST Height Source Estimated Height Entry Format [place] Height/Length, GUAMANIAN (ft) 5 ft Height/Length GUAMANIAN 3 Inch CLINICALHEIGHT 160.02 cm [place] Body Weight 52.02 kg Weight Source, ED Critical estimated dosing weight Weight Entry Format [place] Weight Ukrainian lb 115 lb CLINICALWEIGHT 52.27 kg Body Surface Area (BSA) 1.53 m2 Body Mass Index 20.4 kg/m2 . Oxygen Saturation 06/08/2020 1:57 EST Oxygen Saturation 98 % . General: Alert, no acute distress. Ophiem coma scale: Per nurse's notes. Neurological: Alert [...] Yellow Urine Appearance Slightly Cloudy Urine Specific [place] >=1.030 Urine pH Dipstick 6.0 Urine Leukocyte [...] Discharge, Emergency medicine, Medical Plan Prescriptions: Prescription Turf Manager Pharmacy: Bactrim DS 800 mg-160 mg oral [...]
--- OUTSIDE RECORDS SUMMARY | 2025-01-20 14:57 | XMS_ITS | Referral Summary ---
Author Organization [employer] ([place], [place], [place], [place]) Address [address] [place] [address] Care Team Providers Care Security Technician Name Role Phone Unavailable Primary Care Provider [...]
--- OUTSIDE RECORDS SUMMARY | 2025-01-20 14:57 | XMS_ITS | Encounter Summary ---
Author Organization [employer] ([place], [place], [place], [place]) Address [address] [place] [address] Care Team Providers Care Asset Protection Greeter Name Role Phone Unavailable Primary Care Provider Unavailabl e Encounter Details Date Type Department Care Team (Late st Contact Info) Description 06/08/2020 Transcribed Document [facility] [place] Family Medicine [facility] [place] [address] ProviderDeclan MD [address] [place] [address] Social History Tobacco Use Types [...] - Declan ProviderMD - 06/08/2020 1:44 AM STATISTICAL PROGRAMMER ED Assessment Entered On: 06/08/2020 2:09 EST [...] Communication Barrier : None Primary Language : Lithuanian Any Spiritual/Cultural Needs or Requests : No [...]
--- OUTSIDE RECORDS SUMMARY | 2025-01-20 14:57 | XMS_ITS | Clinical Summary ---
Author Organization [employer] ([place], [place], [place], [place]) Address [address] [place] [address] Care Team Providers Care Glass Decorator Name Role Phone Unavailable Primary Care Provider [...]
--- OUTSIDE RECORDS SUMMARY | 2025-01-20 14:57 | XMS_ITS | Encounter Summary ---
Author Organization [facility] ([place], [place], [place], [place]) Address [address] [place] [address] Care Team Providers Care Insights Strategist Name Role Phone Unavailable Primary Care Provider Unavailabl e Encounter Details Date Type Department Care Team (Late st Contact Info) Description 06/08/2020 Transcribed Document [facility] [place] Family Medicine [address] [place] [address] ProviderDeclan MD [address] [place], [place] [id number] Social History Tobacco Use Types Packs/Day Years [...] - Declan ProviderMD - 06/08/2020 1:44 AM CASTER INVESTMENT CASTING [place] Suicide Severity Rating Scale (C-SSRS) Entered On: 06/08/2020 2:09 EST Performed On: 06/08/2020 1:57 EST by Aleta Smith RN [place] Suicide Severity Rating Scale (C-SSRS) CSSRS Past Month Wish to be : No CSSRS Past Month Suicidal Thoughts : No CSSRS Lifetime Suicide Behavior : No Suicide Severity Rating Score : 0 Suicide Severity Rating : No Additional Care Required at this time Aleta Smith RN - 06/08/2020 1:57 EST Electronically signed by Brandy [facility] Conversion Fur Ironer Cerner at 07/17/2022 9:49 AM CDT documented in this encounter Plan of Treatment Not on file documented as of this encounter Visit Diagnoses Not on filedocumented in this encounter
--- OUTSIDE RECORDS SUMMARY | 2025-01-20 14:57 | XMS_ITS | Encounter Summary ---
Author Organization [employer] ([place], [place], [place], [place]) Address [address] [place] [address] Care Team Providers Care Weaving Instructor Name Role Phone Unavailable Primary Care Provider Unavailabl e Encounter Details Date Type Department Care Team (Late st Contact Info) Description 06/08/2020 Transcribed Document [facility] [place] Family Medicine [facility] [place] [address] ProviderDeclan MD [address] [place] [address] Social History Tobacco Use Types [...] - Declan ProviderMD - 06/08/2020 3:02 AM SUPERVISOR EDGING Electronically signed by Brandy [facility] Conversion Infantry Weapons Officer Radha at 07/17/2022 9:34 AM CDT documented in this encounter Plan of Treatment Not on file documented as of this encounter Visit Diagnoses Not on filedocumented in this encounter
--- OUTSIDE RECORDS SUMMARY | 2025-01-20 14:57 | XMS_ITS | Encounter Summary ---
Author Organization [employer] ([place], [place], [place], [place]) Address [address] [place] [address] Care Team Providers Care Policy Change Clerk Name Role Phone Unavailable Primary Care Provider Unavailabl e Encounter Details Date Type Department Care Team (Late st Contact Info) Description 06/08/2020 Transcribed Document [facility] [place] [facility] [place] [address] ProviderDeclan MD [address] [place] [address] Social History Tobacco Use Types [...] Declan Vega MD - 06/08/2020 3:04 AM ATOMIC PROCESS ENGINEER [facility] [address] [place] [address] HALEY GARCIA :2000 Visit Time:06/08/2020 Your Visit [...] ) Urine Bilirubin Dipstick: Negative Urine Specific [place]: >=1.030 -- Normal range between ( 1.005 [...] this condition includes: ??? Antibiotic medicine. ??? Xyus-mpj-aahizlb medicines to treat discomfort. ??? Drinking enough [...] these instructions at home: Medicines ??? Take ksfp-nuy-iyylrwu and prescription medicines only as told by [...] 12/27/2005 Document Revised: 03/06/2019 Document Reviewed: 09/26/2018 [employer]ikk [employer] Ltd. Patient Education ?? 2020 [employer] Inc. Seizure, Adult A seizure is a [...] these instructions at home: Medicines ??? Take yput-bmh-tteaqwt and prescription medicines only as told by [...] medicines are used to treat seizures. Take yzwg-yjz-ptplbeh and prescription medicines only as told by your health care provider. This information is not intended to replace advice given to you by your health care provider. Make sure you discuss any questions you have with your health care provider. Document Released: 03/16/2001 Document Revised: 06/06/2019 Document Reviewed: 06/06/2019 [employer] Patient Education ?? 2020 Sunshine. Emergency Awareness and Preventative Care STROKE is [...] Assistance with quitting is available by contacting 9-948-TRYTNOW. This is a free resource providing counseling, support, and referral. Or you may contact your personal physician. [employer] Suicide Prevention Lifeline: The National Suicide Prevention [...] was given the opportunity to ask questions. Patient/Street And Building Decorator Name: Patient/Street And Building Decorator Signature: Relationship to Patient: Clinician/Hospital Street And Building Decorator Signature: Please Provide a Telephone Number Where You Can Be Reached: Is it Permissible To Leave a Message? Date: documented in this encounter Plan of Treatment Not on file documented as of this encounter Visit Diagnoses Not on filedocumented in this encounter
--- OUTSIDE RECORDS SUMMARY | 2025-01-20 14:57 | XMS_ITS | Encounter Summary ---
Author Organization [employer] ([place], [place], [place], [place]) Address [address] [place] [address] Care Team Providers Care Opener Name Role Phone Unavailable Primary Care Provider Unavailabl e Encounter Details Date Type Department Care Team (Late st Contact Info) Description 06/08/2020 Transcribed Document [facility] [place] Family Medicine [facility] [place] [address] ProviderDeclan MD [address] [place] [address] Social History Tobacco Use Types [...] - Declan ProviderMD - 06/08/2020 1:44 AM IMAGING TECH ED Triage Entered On: 06/08/2020 2:05 EST [...] : 3 - Urgent Tracking Group : [facility] ED Aleta Mohan RN - 06/08/2020 [...] PNED ; Probability: 0 ; Diagnosis Code: [id number] ED Height and Weight Height Source : Estimated Height Entry Format : [place] Height, Feet : 5 ft(Converted to: 152 cm, 60 Inch) Height, Inches : 3 Inch(Converted to: 0 ft 3 Inch, 7.62 cm) Clinical Height : 160.02 cm Weight Source, ED : Critical estimated dosing weight Weight Entry Format : [place] Weight, Pounds : 115 lb Clinical Dosing Weight : 52.27 kg Body Surface Area (BSA) : 1.53 m2 Body Mass Index : 20.4 kg/m2 [place] Body Weight (IBW) : 52.02 kg Aleta Smith RN - 06/08/2020 1:57 EST documented in this encounter Plan of Treatment Not on file documented as of this encounter Visit Diagnoses Not on filedocumented in this encounter
--- OUTSIDE RECORDS SUMMARY | 2025-01-20 14:57 | XMS_ITS | Encounter Summary ---
Author Organization [employer] ([place], [place], [place], [place]) Address [address] [place] [address] Care Team Providers Care History Tutor Name Role Phone Unavailable Primary Care Provider Unavailabl e Encounter Details Date Type Department Care Team (Late st Contact Info) Description 06/08/2020 Transcribed Document [facility] [place] [facility] [place] [address] ProviderDeclan MD [address] [place] [address] Social History Tobacco Use Types [...] - Declan ProviderMD - 06/08/2020 3:22 AM HEALTH PRACTICE MANAGER ED Discharge Entered On: 06/08/2020 3:23 EST [...] signed by Brandy, [facility] Conversion Paperboard Box Maker Cerner at 07/17/2022 9:50 AM CDT documented in this encounter Plan of Treatment Not on file documented as of this encounter Visit Diagnoses Not on filedocumented in this encounter
--- OUTSIDE RECORDS SUMMARY | 2025-01-20 14:57 | XMS_ITS | Clinical Summary ---
Author Organization [facility] Address [address] [place] [address] Care Team Providers Care Statue Carver Name Role Phone Unavailable Primary Care Provider [...] 19+ 3-dose series) 2017 UKY-Pap Smear 2019 [id number] Vaccine (1 - 20 24-25 season) 2024 [...]
--- OUTSIDE RECORDS SUMMARY | 2025-01-20 14:57 | XMS_ITS | Encounter Summary ---
Author Organization [employer] ([place], [place], [place], [place]) Address [address] [place] [address] Care Team Providers Care Paramedic Instructor Name Role Phone Unavailable Primary Care Provider Unavailabl e Encounter Details Date Type Department Care Team (Late st Contact Info) Description 06/08/2020 Transcribed Document [facility] [place] [facility] [place] [address] ProviderDeclan MD [address] [place], [place] [id number] Social History Tobacco Use Types Packs/Day Years [...] - Declan ProviderMD - 06/08/2020 1:44 AM CORPORATE RELATIONS DIRECTOR Broset Violence Assessment Entered On: 06/08/2020 2:09 [...]
--- OUTSIDE RECORDS SUMMARY | 2025-01-20 14:58 | XMS_ITS | Encounter Summary ---
Author Organization [employer] ([place], [place], [place], [place]) Address [address] [place] [address] Care Team Providers Care Reporting Manager Name Role Phone Unavailable Primary Care Provider Unavailabl e Encounter Details Date Type Department Care Team (Late st Contact Info) Description 06/11/2020 Transcribed Document [facility] [place] Family [place] [address] ProviderDeclan MD [address] [place] [address] Social History Tobacco Use Types [...] - Historical ProviderMD - 06/11/2020 2:47 PM BULLDOGGER Urine Culture Collected: 06/08/2020 02:07 Entaer Complete Body site: Specimen Type: U CleanCatch 06/11/2020 09:45 06/11/2020 14:47 (MEL LUNA PA) Reviewed by Provider, No further action required documented in this encounter Plan of Treatment Not on file documented as of this encounter Visit Diagnoses Not on filedocumented in this encounter
--- NOTE | 2025-01-20 15:15 | US_ITS ---
PROCEDURE: US OB FOLLOW UP CLINICAL INDICATION: Gestational age COMPARISON: No exams were available for comparison FINDINGS: Transabdominal sonographic images of the pelvis were obtained. The following parameters are obtained: Her established due date is unknown. Viable fetus in the breech presentation with an anterior placenta grade 1. heart rate: 156bpm bpm. Average ultrasound age 13 weeks 5 days JOHN 07/23/2025 CRL: 13 weeks 1 day BPD: 14weeks 0 days HC: 13weeks 4days AC: 14weeks 0 days FL: 13weeks 4days HC/AC: 1.1 FL/BPD: 0.51 FL/AC: 0.16 Amniotic fluid: Subjectively appears normal No obvious anomalies evident. Both ovaries are seen and appear normal IMPRESSION: 1. Viable fetus within the uterine cavity. heart rate activity is seen. 2. Fetus is in the breech presentation with an anterior placenta grade 1. 3. Subjectively the fluid appears to be within normal limits. 4. Average ultrasound age is 13 weeks 5 days and the JOHN will be 07/23/2025. 5. No obvious anomalies. 6. Suggest repeat scan for complete anatomy at 20 weeks. Dictated by: Elvis Qureshi MD 01/21/2025 10:06 Elvis Qureshi MD in OV 01/21/2025 10:06
== END 2025-01-20 23:59 | disposition home or self-care (01) ==
LOC: RAD 14:49
PROVIDERS: PCP Obstetrics & Gynecology; Visit Provider Obstetrics & Gynecology
DX: Z36.89 Encounter for other specified antenatal screening (principal); Z3A.13 13 weeks gestation of pregnancy
CPT/HCPCS: 76816

== ENCOUNTER 2025-03-11 13:51 | Outpatient (CLI) | payer OTHER, SELFPAY ==
--- NOTE | 2025-03-11 14:00 | US_ITS ---
PROCEDURE: US OB /MATERNAL DETAIL CLINICAL INDICATION: schedule 20wk anatomy scan COMPARISON: US US OB FOLLOW UP from 01/20/2025 FINDINGS: Transabdominal sonographic images of the pelvis were obtained. From her established due date she is 20 weeks 6 days. Single viable intrauterine gestation. Breech position. Placenta: Anteriorplacenta grade 1. There are multiple lakes throughout the placenta. There is an average amount of fluid. The cervix appears satisfactory. Closed and measuring 4.24 cm in length. Complete survey performed and was unremarkable on the submitted images as in PACS. No discrete anomalies identified on survey imaging by technologist. Active fetus. Three-vessel cord with satisfactory umbilical cord insertion. 4- chamber heart noted. Situs, aortic arch, LVOT, RVOT, three-vessel view appear normal. Survey of brain & ventricles Unremarkable. Cerebellum, thalamus, choroid plexus, cisterna magna appear normal. Face and neck survey unremarkable. Profile, nasion, lips and nose appeared normal. Diaphragm and chest views unremarkable. Abdomen: Both kidneys noted and unremarkable. Stomach and bladder noted and satisfactory. Spine: Survey of the spine satisfactory with no anomalies identified nor imaged. Cervical, thoracic, lower spine appear normal. Both arms and legs noted. Amniotic Fluid: Adequate. MVP 3.72 cm Measurements: Average ultrasound age 20weeks 5days. Estimated due date by ultrasound age 0407/24/2025. Estimated weight 362g BPD = 20weeks 4days HC = 20weeks 4days AC = 21weeks 0 days FL = 20weeks 2days Growth Percentile= 30 Heart Rate = 149bpm Cerebellum = 21weeks 2days Humerus = 21weeks 0 days HC/AC is 1.15 FL/BPD is 0.68 FL/AC is 0.21 IMPRESSION: 1. Viable fetus in the breech presentation with an anterior placenta grade 1. There are multiple lakes throughout the placenta and would suggest a follow-up ultrasound at 28 weeks. 2. The fluid is within normal limits with an MVP 3.72 cm. 3. Anatomical scan appears normal. 4. biometry is consistent with the dates. Dictated by: Elvis Qureshi MD 03/11/2025 17:40 Elvis Qureshi MD in [facility] 03/11/2025 17:40
== END 2025-03-11 23:59 | disposition home or self-care (01) ==
LOC: RAD 13:52
PROVIDERS: Visit Provider Obstetrics & Gynecology
DX: O32.1XX0 Maternal care for breech presentation, not applicable or unspecified (principal); O28.3 Abnormal ultrasonic finding on antenatal screening of mother; Z3A.20 20 weeks gestation of pregnancy
CPT/HCPCS: 76811